=== PATIENT | male | born 1970 | race Hispanic/Latino ===

== ENCOUNTER 2017-09-24 11:51 | Observation (INO) | payer MEDICARE, MEDICAID ==
--- NOTE | 2017-09-24 12:48 | ED PDOC ---
HPI:STROKE - Time Time: 12:43 - Historian Historian: Patient - Chief Complaint Chief Complaint: Confusion - Onset Date: 09/23/17 Time: 12:00 - Timing Timing: Persistent - Location Location: Speech - Severity of pain Maximum severity:: Moderate Pain Scale:: 0 Severity Current: Moderate Pain Scale:: 0 - Exacerbated by Exacerbated by:: Nothing - Relieved by Relieved by:: Nothing - TPA Positive for Contraindication: Yes Reason tPA is not being Administered: 24 hrs since onset - Notes: Notes:: [place] unsteady yesterday at 12 PM after undergoing dental procedure. Legs bialt felt heavy. Had difficulty speaking and then slept all day until this AM. H/o brain abscess with subsequent seizure disorder, on Lamotrigine. Denies fever. Dos not have recollection of having seizure. Denies headache or fever. Normally has some degree of expressive aphasia and tremors of upper ext but worse since onset of sxs. No focal weakness NIHSS Stroke Scale - How Severe is the Stroke Level of Consciousness: 0=Alert LOC to Questions: 0=Both comments correct LOC to commands: 0=Obeys both correctly Best Gaze: 0=Normal Visual: 0=No visual loss Facial: 0=Normal Motor Arm - Left: 0=No drift Motor Arm - Right: 0=No drift Motor Leg - Left: 0=No drift Motor Leg - Right: 0=No drift Limb Ataxia: 0=Absent Sensory: 0=Normal Best Language: 1=Mild to moderate aphasia Dysarthia: 0=Normal articulation Extinction & Inattention (Neglect): 0=Normal, no object Score: 1 rTPA Inclusion/Exclusion - Refusal of Treatment Patient Refused Treatment: No - Inclusion Criteria for Altepase Patient is 18 years or Older: Yes The Clinical Diagnosis of Ischemic Stroke That is Causing a Potentially Disabling Neurological Deficit: No Time of Onset is Well Established to be Less Than 270 Minute Before Treatment Would Begin: No Risk/Benefit Discussed With Patient/Family Member Present: No Past Medical History Vital Signs: Last Vital Signs Temp 97 F L 09/24/17 11:59 Pulse 97 H 09/24/17 11:59 Resp 18 09/24/17 11:59 BP 156/100 H 09/24/17 11:59 Pulse Ox 100 09/24/17 11:59 - Medical History PMH: Anxiety, Depression, Seizures - Surgical History Other surgeries: Brain abscess - Family History Family History: States: Unknown Family Hx - Home Medications Home Medications: Ambulatory Orders Medication Instructions Recorded Clindamycin [Cleocin] 300 mg PO BID #14 cap 08/25/16 - Allergies Allergies/Adverse Reactions: Allergies Allergy/AdvReac Type Severity Reaction Status Date / Time No Known Allergies Allergy Verified 08/25/16 00:45 Review of Systems ROS Statement: Except As Marked, All Systems Reviewed And Found Negative Neurological: Positive for: Seizures Physical Exam - Reviewed Nursing Documentation Reviewed: Yes Vital Signs Reviewed: Yes - Physical Exam Appears: Positive for: Non-toxic, No Acute Distress Head Exam: Positive for: ATRAUMATIC, NORMAL INSPECTION, NORMOCEPHALIC Skin: Positive for: Normal Color, Warm, DRY Eye Exam: Positive for: EOMI, Normal appearance, PERRL ENT: Positive for: Normal ENT Inspection Neck: Positive for: Normal, Painless ROM Cardiovascular/Chest: Positive for: Regular Rate, Rhythm Respiratory: Positive for: CNT, Normal Breath Sounds Gastrointestinal/Abdominal: Positive for: Normal Exam, Bowel Sounds, Soft Back: Positive for: Normal Inspection Extremity: Positive for: Normal ROM Neurologic/Psych: Positive for: Alert, Oriented, Aphasia (expressive), Other ( Tremors upper ext R>L) - Laboratory Results Result Diagrams: 09/24/17 12:45 09/24/17 12:45 - ECG O2 Sat by Pulse Oximetry: 100 Disposition - Clinical Impression Clinical Impression: Recurrent seizures - Patient ED Disposition Is Patient to be Admitted: Yes - Disposition Disposition Time: 14:22 Condition: FAIR Forms: [facility] (Angolan) - Pt Status Changed To: Hospital Disposition Of: Observation - POA Present On Arrival: None
[2017-09-24 12:54] LABS: BASO % 0.3 % (0.0-2.0); EOS # 0.1 K/uL (0.0-0.7); EOS % 1.6 % (0.0-4.0); LYMPH % 13.8 % (20.0-40.0); MEAN CELL VOLUME 89.3 fl (80.0-94.0); MEAN CORPUSCULAR HEMOGLOBIN 29.9 pg (27.0-31.0); MEAN CORPUSCULAR HGB CONC 33.5 g/dL (33.0-37.0); MEAN PLATELET VOLUME 7.3 fl (7.2-11.7); MONO # 0.6 K/uL (0.0-0.8); MONO % 8.2 % (0.0-10.0); NEUT # 5.5 K/uL (1.8-7.0); NEUT % 76.1 % (50.0-75.0); NRBC % 0.1 % (0.0-0.0); RBC 5.34 Mil/uL (4.40-5.90); RED CELL DISTRIBUTION WIDTH 15.9 % (11.5-14.5); WHITE BLOOD COUNT 7.3 K/uL (4.8-10.8)
[2017-09-24 13:06] LABS: ALB/GLOB RATIO 1.4 (1.0-2.1); ALBUMIN 4.4 g/dL (3.5-5.0); ALT/SGPT 47 U/L (21-72); AST/SGOT 27 U/L (17-59); BLOOD UREA NITROGEN 15 mg/dl (9-20); CALCIUM 9.4 mg/dL (8.4-10.2); GFR AFRICAN-AMERICAN > 60; GFR NON-AFRICAN AMERICAN > 60; HDL CHOLESTEROL 32 MG/DL (30-70); INR 0.9 (0.9-1.2); PARTIAL THROMBOPLASTIN TIME 32.4 Seconds (25.6-37.1); PROTHROMBIN TIME 10.4 Seconds (9.8-13.1)
[2017-09-24 13:17] LABS: LDL CHOLESTEROL 114 mg/dL (0-129)
--- NOTE | 2017-09-24 14:01 | CT ---
PROCEDURE: CT HEAD WITHOUT CONTRAST. HISTORY: code stroke COMPARISON: MRI brain dated 07/08/2017. TECHNIQUE: Axial computed tomography images were obtained through the head/brain without intravenous contrast. Radiation dose: Total exam DLP = 874.5 mGy-cm. This CT exam was performed using one or more of the following dose reduction techniques: Automated exposure control, adjustment of the mA and/or kV according to patient size, and/or use of iterative reconstruction technique. FINDINGS: HEMORRHAGE: No intracranial hemorrhage. BRAIN: No mass effect or edema. Left occipital encephalomalacia. No atrophy or chronic microvascular ischemic changes. VENTRICLES: Asymmetric prominence of the right lateral ventricle, variant. No hydrocephalus. Roosevelt cisterna magna. CALVARIUM: Unremarkable. PARANASAL SINUSES: Unremarkable as visualized. No significant inflammatory changes. MASTOID AIR CELLS: Unremarkable as visualized. No inflammatory changes. OTHER FINDINGS: None. IMPRESSION: No acute intracranial pathology. Redemonstration of left occipital lobe encephalomalacia.
--- NOTE | 2017-09-24 15:50 | RAD ---
HISTORY: seizure COMPARISON: Chest radiograph dated 01/28/2013. FINDINGS: LUNGS: No active pulmonary disease. PLEURA: Mild elevation of the right hemidiaphragm. No significant pleural effusion identified, no pneumothorax apparent. CARDIOVASCULAR: Cardiomediastinal silhouette stably prominent. OSSEOUS STRUCTURES: Unchanged. VISUALIZED UPPER ABDOMEN: Epigastric and left upper quadrant region surgical clips. OTHER FINDINGS: Thoracic spinal stimulator leads. IMPRESSION: No active disease.
[2017-09-24] MEDS: AMPHETAMINE SALT COMBINATION 10 MG TAB PO SCH (18:27)
[2017-09-24] MEDS ORDERED: Calcium-Vit D 500 mg-200 Units Tab UD PO SCH (22:00)
[2017-09-25 00:46] VITALS: RESP 18
[2017-09-25 06:16] LABS: ALB/GLOB RATIO 1.3 (1.0-2.1); ALT/SGPT 42 U/L (21-72); AST/SGOT 27 U/L (17-59); BLOOD UREA NITROGEN 13 mg/dl (9-20); CALCIUM 9.1 mg/dL (8.4-10.2); GFR AFRICAN-AMERICAN > 60; GFR NON-AFRICAN AMERICAN > 60; HDL CHOLESTEROL 26 MG/DL (30-70)
[2017-09-25 06:25] LABS: LDL CHOLESTEROL 99 mg/dL (0-129)
[2017-09-25 06:28] LABS: BASO % 0.4 % (0.0-2.0); EOS # 0.2 K/uL (0.0-0.7); EOS % 2.4 % (0.0-4.0); HEMOGLOBIN 16.1 g/dL (12.0-18.0); LYMPH # 1.1 K/uL (1.0-4.3); LYMPH % 16.3 % (20.0-40.0); MEAN CELL VOLUME 88.8 fl (80.0-94.0); MEAN CORPUSCULAR HEMOGLOBIN 30.1 pg (27.0-31.0); MEAN PLATELET VOLUME 7.5 fl (7.2-11.7); MONO # 0.6 K/uL (0.0-0.8); MONO % 9.7 % (0.0-10.0); NEUT # 4.6 K/uL (1.8-7.0); NEUT % 71.2 % (50.0-75.0); NRBC % 0.2 % (0.0-0.0); RBC 5.34 Mil/uL (4.40-5.90); RED CELL DISTRIBUTION WIDTH 15.9 % (11.5-14.5); WHITE BLOOD COUNT 6.5 K/uL (4.8-10.8)
[2017-09-25 08:16] VITALS: BP 129/75; PULSE 85; TEMP 97.6; O2SAT 97
[2017-09-25] MEDS ORDERED: Enoxaparin 40 mg Syringe SC SCH (09:00)
[2017-09-25] MEDS ORDERED: Multivitamin With Minerals Tab PO SCH (09:00)
[2017-09-25] MEDS ORDERED: Omega-3-Acid Ethyl Esters 1 GM Cap PO SCH (09:00)
[2017-09-25] MEDS ORDERED: Cholecalciferol 1,000 INTLU TAB PO SCH (09:00)
[2017-09-25] MEDS ORDERED: Venlafaxine 150 mg ER Cap PO SCH (09:00)
[2017-09-25] MEDS: AMPHETAMINE SALT COMBINATION 10 MG TAB PO SCH (09:57)
--- NOTE | 2017-09-25 11:27 | CARD ---
APPROVED REPORT EKG Measurement Heart [id number] CT [id number] [id number] <Conclusion> Normal sinus rhythm Normal ECG
--- NOTE | 2017-09-25 11:37 | CP.PCM.HP ---
History of Present Illness - History of Present Illness History of Present Illness: 47 YO M was admitted yesterday after undergoing an eppiosde of a questionable seizure vs TIA. Patient was at the dentist office yesterday when he was given local anaesthesia for a dental procedure, after that the patient states he felt as if his legs felt heavy and difficulty speaking. He ended up sleeping all day untill he came to the ER. He has been having eppisodes of seizures ever since he had surgery for his brain abscess. He has been complient with his medication. Patient has been explained the importance of staying in the hospital for furthur work up however, he staes he has an appointment with Dr. Funez, and would like to go. PMH: Seizures SH: Brain abscess FH: not significant SH: Denies travel or illicit drug use Present on Admission - Present on Admission Any Indicators Present on Admission: No Past Patient History - Past Medical History & Family History Past Medical History?: Yes - Past Social History Smoking Status: Former Smoker - NEUROLOGICAL Hx Neurological Disorder: Yes Hx Meningitis: Yes Hx Seizures: Yes - HEMATOLOGICAL/ONCOLOGICAL Hx AIDS: No Hx Human Immunodeficiency Virus (HIV): No - MUSCULOSKELETAL/RHEUMATOLOGICAL Hx Falls: No - PSYCHIATRIC Hx Psychophysiologic Disorder: Yes Hx Anxiety: Yes Hx Depression: Yes Hx Substance Use: No - SURGICAL HISTORY Hx Surgeries: Yes Hx Appendectomy: Yes Hx Gastric Bypass Surgery: Yes (5 years ago) Hx Herniorrhaphy: Yes (Ventral and right groin hernia repair) Other/Comment: Brain surgery on brain abscess. Back Stimulation System Implant - ANESTHESIA Hx Anesthesia: Yes Hx Anesthesia Reactions: No Meds Allergies/Adverse Reactions: Allergies Allergy/AdvReac Type Severity Reaction Status Date / Time No Known Allergies Allergy Verified 08/25/16 00:45 Physical Exam - Constitutional Appears: No Acute Distress - Head Exam Head Exam: NORMAL INSPECTION - Eye Exam Eye Exam: Normal appearance - Respiratory Exam Respiratory Exam: Clear to Auscultation Bilateral, NORMAL BREATHING PATTERN. absent: Rhonchi, Wheezes - Cardiovascular Exam Cardiovascular Exam: REGULAR RHYTHM, +S1, +S2 - GI/Abdominal Exam GI & Abdominal Exam: Normal Bowel Sounds, Soft. absent: Tenderness - Extremities Exam Extremities exam: Positive for: normal inspection. Negative for: calf tenderness - Neurological Exam Neurological exam: Alert, CN II-XII Intact, Normal Gait, Oriented x3, Reflexes Normal - Psychiatric Exam Psychiatric exam: Normal Affect, Normal Mood - Skin Skin Exam: Normal Color, Warm Results - Vital Signs Recent Vital Signs: Last Vital Signs Temp 97.6 F 09/25/17 08:00 Pulse 85 09/25/17 08:00 Resp 18 09/25/17 08:00 BP 129/75 09/25/17 08:00 Pulse Ox 97 09/25/17 08:00 - Labs Result Diagrams: 09/25/17 04:32 09/25/17 04:32 Labs: Laboratory Results - last 24 hr 09/24/17 09/24/17 09/24/17 12:45 12:45 12:45 WBC 7.3 RBC 5.34 Hgb 16.0 D Hct 47.7 MCV 89.3 MCH 29.9 MCHC 33.5 RDW 15.9 H Plt Count 189 MPV 7.3 Neut % (Auto) 76.1 H Lymph % (Auto) 13.8 L [place] % (Auto) 8.2 Eos % (Auto) 1.6 Baso % (Auto) 0.3 Neut # (Auto) 5.5 Lymph # (Auto) 1.0 Meade # (Auto) 0.6 Eos # (Auto) 0.1 Baso # (Auto) 0.0 PT INR APTT Sodium 143 Potassium 4.3 Chloride 104 Carbon Dioxide 26 Anion Gap 17 BUN 15 Creatinine 0.8 Est GFR ( Amer) > 60 Est GFR (Non-Af Amer) > 60 Random Glucose 98 Hemoglobin A1c 5.5 Calcium 9.4 Total Bilirubin 0.7 AST 27 ALT 47 Alkaline Phosphatase 40 Troponin I < 0.0120 Total Protein 7.4 Albumin 4.4 Globulin 3.0 Albumin/Globulin Ratio 1.4 Triglycerides 70 Cholesterol 156 LDL Cholesterol Direct 114 HDL Cholesterol 32 Vitamin B12 Blood Type Blood Type Confirm Antibody Screen BBK History Checked 09/24/17 09/24/17 09/24/17 12:45 12:45 14:40 WBC RBC Hgb Hct MCV MCH MCHC RDW Plt Count MPV Neut % (Auto) Lymph % (Auto) Meade % (Auto) Eos % (Auto) Baso % (Auto) Neut # (Auto) Lymph # (Auto) Meade # (Auto) Eos # (Auto) Baso # (Auto) PT 10.4 INR 0.9 APTT 32.4 Sodium Potassium Chloride Carbon Dioxide Anion Gap BUN Creatinine Est GFR ( Amer) Est GFR (Non-Af Amer) Random Glucose Hemoglobin A1c Calcium Total Bilirubin AST ALT Alkaline Phosphatase Troponin I Total Protein Albumin Globulin Albumin/Globulin Ratio Triglycerides Cholesterol LDL Cholesterol Direct HDL Cholesterol Vitamin B12 Blood Type B POSITIVE Blood Type Confirm B POSITIVE Antibody Screen Negative BBK History Checked No verified bt 09/24/17 09/25/17 09/25/17 16:38 04:32 04:32 WBC 6.5 RBC 5.34 Hgb 16.1 Hct 47.5 MCV 88.8 MCH 30.1 MCHC 34.0 RDW 15.9 H Plt Count 184 MPV 7.5 Neut % (Auto) 71.2 Lymph % (Auto) 16.3 L [place] % (Auto) 9.7 Eos % (Auto) 2.4 Baso % (Auto) 0.4 Neut # (Auto) 4.6 Lymph # (Auto) 1.1 Meade # (Auto) 0.6 Eos # (Auto) 0.2 Baso # (Auto) 0.0 PT INR APTT Sodium 144 Potassium 3.8 Chloride 103 Carbon Dioxide 34 H Anion Gap 11 BUN 13 Creatinine 0.9 Est GFR ( Amer) > 60 Est GFR (Non-Af Amer) > 60 Random Glucose 74 L Hemoglobin A1c Calcium 9.1 Total Bilirubin 0.9 AST 27 ALT 42 Alkaline Phosphatase 37 L Troponin I Total Protein 6.9 Albumin 4.0 Globulin 2.9 Albumin/Globulin Ratio 1.3 Triglycerides 74 Cholesterol 142 LDL Cholesterol Direct 99 HDL Cholesterol 26 L Vitamin B12 910 Blood Type Blood Type Confirm Antibody Screen BBK History Checked Assessment & Plan - Assessment and Plan (Free Text) Assessment: 1) Seizure Vs TIA - Was transient and resolved. - Head CT was negative - Neuro consulted - continue home meds - Patient would like to sign out AMA to see his neurologist outpatient. Understands risks.
[2017-09-25 17:26] LABS: FOLATE > 20.0 ng/mL
[2017-09-25 20:53] LABS: THYROGLOBULIN 7.1 ng/mL (2.8-40.9)
--- NOTE | 2017-09-28 09:02 | HP ---
CHIEF COMPLAINT: Abdominal pain. HISTORY OF PRESENT ILLNESS: This is a 54-year-old male known case of end-stage cirrhosis of the liver from past alcohol abuse, who had multiple admissions to this hospital and also had multiple paracenteses done, who was having abdominal pain. The patient was brought to the emergency room and was admitted for further management. REVIEW OF SYSTEMS: Positive for abdominal pain. Review of systems otherwise is negative for headache, dizziness, syncope, loss of consciousness, chest pain, shortness of breath, nausea, vomiting, diarrhea, constipation, any new joint or extremity pain. Review of systems of all other organ system is unremarkable. PAST MEDICAL HISTORY: Significant for cirrhosis of liver. PAST SURGICAL HISTORY: Remarkable for multiple paracentesis. PERSONAL HISTORY: The patient is currently nonsmoker, nondrinker. No substance abuse, but has history of extensive alcohol abuse in the past. FAMILY HISTORY: Noncontributory. PHYSICAL EXAMINATION: GENERAL: Chronically sick-looking, 54-year-old male in no acute distress. VITAL SIGNS: Temperature afebrile, pulse 88, respirations 18, blood pressure 100/70. HEENT: Pupils are reacting to light. Normocephalic and atraumatic skull. NECK: No JVD. No thyromegaly. No lymphadenopathy. No nystagmus. HEART: S1 and S2, normal and regular. No significant murmur, gallop or rub is heard. LUNGS: Shows good bilateral air exchange. No rales or rhonchi. ABDOMEN: Actually soft, minimal tenderness, minimal ascites. No sign of acute abdomen. No guarding. No rigidity. No rebound. Bowel sounds are plus and normal. EXTREMITIES: No edema. No calf swelling. No tenderness. No acute ischemia. CENTRAL NERVOUS SYSTEM: Essentially unchanged from the patient's initial exam and there is no sign of any acute gross focal, motor, or sensory neurological deficit. DIAGNOSTIC DATA: Available diagnostic data reviewed. Telemetry monitoring does not reveal significant arrhythmias. INR remains elevated so are the liver enzymes. Admitting patient's CAT scan also is consistent with possible cholecystitis, I am recommending HIDA scan. ADMITTING IMPRESSION: Abdominal pain, questionable acute cholecystitis, ascites, cirrhosis of liver, alcohol abuse in the past. PLAN: As ordered. Case and plan discussed with patient. Quan Lozano MD [facility] # [id number]
== END 2017-09-25 11:16 | disposition left against medical advice (07) ==
LOC: H.ER 11:51 → H.ERHOLD 14:19 → H.TEL 21:34
PROVIDERS: ADMIT Internal Medicine; ATTEND Internal Medicine
DX: G40.909 Epilepsy, unspecified, not intractable, without status epilepticus (principal); R47.01 Aphasia; Z79.899 Other long term (current) drug therapy; Z86.61 Personal history of infections of the central nervous system; Z87.891 Personal history of nicotine dependence; Z90.49 Acquired absence of other specified parts of digestive tract; Z98.84 Bariatric surgery status; F32.9 Major depressive disorder, single episode, unspecified; F41.9 Anxiety disorder, unspecified; F45.9 Somatoform disorder, unspecified; R25.1 Tremor, unspecified
CPT/HCPCS: 36415; 70450; 71045; 80053; 80061; 82607; 82746; 83036; 84432; 84484; 85025; 85610; 85730; 86800; 86850; 86900; 93005; 99285; G0378

== ENCOUNTER 2018-08-24 17:40 | Inpatient (IN) | payer MEDICARE, MEDICAID ==
[2018-08-24] MEDS ORDERED: Sodium Chloride 0.9% 1,000 ML IV STA (18:47)
--- NOTE | 2018-08-24 19:20 | ED PDOC ---
HPI: Abdomen Time Seen by Provider: 08/24/18 18:22 Chief Complaint (Nursing): Abdominal Pain History Per: Patient Additional Complaint(s): Pt states for the past 2 weeks he's had epigastric pain associated with constipation. Attempted to use enema without relief but has been using antacids with good relief of abdominal pain. Symptoms improved 2 days ago and had normal BM's but today he had 2 BM that were very dark and he also noticed bright red blood when he wiped. Also reports feeling weak which began after looking at his abnormal stool. Denies chest pain, SOB, N/V, hematemesis, previous GI bleeds, fever, diarrhea, previous blood transfusions, rectal pain. Past Medical History Reviewed: Historical Data, Nursing Documentation, Vital Signs Vital Signs: Last Vital Signs Temp 98.8 F 08/24/18 17:57 Pulse 136 H 08/24/18 17:57 Resp 18 08/24/18 17:57 BP 117/79 08/24/18 17:57 Pulse Ox 98 08/24/18 17:57 - Medical History PMH: Anxiety, Depression, Seizures Denies: HIV - Surgical History Surgical History: Appendectomy Other surgeries: gastric bypass 2014 - Family History Family History: States: No Known Family Hx - Home Medications Home Medications: Ambulatory Orders Medication Instructions Recorded Calcium Carbonate/Vitamin D3 2 tab PO HS 09/24/17 [Calcium 1,000 + D3 Caplet] Cholecalciferol [Vitamin D 1000 IU] 2,000 unit PO DAILY 09/24/17 Cyanocobalamin [Vitamin B12 1000 3,000 mcg PO DAILY 09/24/17 mcg Tab] Dextroamphetamine/Amphetamine 10 mg PO TID 09/24/17 [Adderall 10 mg Tablet] Ferrous Sulfate 325 mg PO DAILY 09/24/17 Multivitamin [Multi-Vitamin Daily] 1 tab PO DAILY 09/24/17 [place]-3S/Dha/Epa/Fish Oil [Fish 1,200 mg PO DAILY 09/24/17 Oil 1,200 mg Softgel] RX: Aspirin [Ecotrin] 81 mg PO DAILY 09/24/17 RX: buPROPion XL [Wellbutrin XL] 300 mg PO DAILY 09/24/17 Testosterone [Androgel] 2 actuation TD DAILY 09/24/17 clonazePAM [Klonopin] 0.5 mg PO Q12H 02/01/18 lamoTRIgine [Lamictal] 100 mg PO Q12H 09/24/17 - Allergies Allergies/Adverse Reactions: Allergies Allergy/AdvReac Type Severity Reaction Status Date / Time No Known Allergies Allergy Verified 08/25/16 00:45 Review of Systems ROS Statement: Except As Marked, All Systems Reviewed And Found Negative Gastrointestinal: Positive for: Abdominal Pain Neurological: Positive for: Weakness Physical Exam - Reviewed Nursing Documentation Reviewed: Yes Vital Signs Reviewed: Yes - Physical Exam Appears: Positive for: Well, Non-toxic, No Acute Distress Head Exam: Positive for: NORMAL INSPECTION (old scar on occipital scalp) Skin: Positive for: Normal Color, Warm. Negative for: Rash Eye Exam: Positive for: EOMI, Normal appearance, PERRL ENT: Positive for: Normal ENT Inspection Neck: Positive for: Normal, Painless ROM Cardiovascular/Chest: Positive for: Regular Rate, Rhythm Respiratory: Positive for: CNT, Normal Breath Sounds Gastrointestinal/Abdominal: Positive for: Normal Exam, Bowel Sounds, Soft. Negative for: Tenderness, Distended Back: Positive for: Normal Inspection Rectal: Positive for: Rectal Tone Is: (intact), Black Stool. Negative for: Blood Streaked Stool, Hemorrhoids, Tenderness Extremity: Positive for: Normal ROM Neurologic/Psych: Positive for: Alert, Oriented - Laboratory Results Result Diagrams: 08/24/18 19:00 08/24/18 19:00 - ECG O2 Sat by Pulse Oximetry: 98 - Progress ED Course And Treament: Labs, EKG, protonix 80mg IV and drip, IV NS Bolus, obstructive series ordered. Pt. placed on surveillance monitor. Case d/w Dr. Cano who agrees with plan. Disposition - Clinical Impression Clinical Impression: Melena - Patient ED Disposition Is Patient to be Admitted: Transfer of Care (Signed out to Lady GARCIAS pending EKG, labs, and final disposition) - Disposition Disposition Time: 20:00 Condition: STABLE Forms: [email or web address] (Arabic)
[2018-08-24 19:25] LABS: BASO % 0.5 % (0.0-2.0); EOS # 0.1 K/uL (0.0-0.7); EOS % 1.1 % (0.0-4.0); HEMOGLOBIN 10.3 g/dL (12.0-18.0); LYMPH # 0.8 K/uL (1.0-4.3); LYMPH % 13.9 % (20.0-40.0); MEAN CELL VOLUME 97.9 fl (80.0-94.0); MEAN CORPUSCULAR HEMOGLOBIN 33.5 pg (27.0-31.0); MEAN CORPUSCULAR HGB CONC 34.2 g/dL (33.0-37.0); MEAN PLATELET VOLUME 7.2 fl (7.2-11.7); MONO # 0.7 K/uL (0.0-0.8); MONO % 11.2 % (0.0-10.0); NEUT # 4.3 K/uL (1.8-7.0); NEUT % 73.3 % (50.0-75.0); RBC 3.08 Mil/uL (4.40-5.90); RED CELL DISTRIBUTION WIDTH 13.6 % (11.5-14.5); WHITE BLOOD COUNT 5.9 K/uL (4.8-10.8)
[2018-08-24 19:32] LABS: PARTIAL THROMBOPLASTIN TIME 29.4 Seconds (25.6-37.1); PROTHROMBIN TIME 11.5 Seconds (9.8-13.1)
[2018-08-24 19:42] LABS: ALB/GLOB RATIO 1.4 (1.0-2.1); ALBUMIN 3.3 g/dL (3.5-5.0); ALT/SGPT 34 U/L (21-72); AST/SGOT 26 U/L (17-59); BLOOD UREA NITROGEN 39 mg/dl (9-20); CALCIUM 8.6 mg/dL (8.4-10.2); GFR NON-AFRICAN AMERICAN > 60; LIPASE 213 U/L (23-300)
[2018-08-24] MEDS: Pantoprazole 40 MG in Sodium Chloride 0.9% 100 ML IVPB SCH (19:50)
[2018-08-24] MEDS ORDERED: Sodium Chloride 0.9% 50 ML IV ONE (20:14)
[2018-08-24] MEDS ORDERED: Iohexol 300 100 ML IJ ONE (20:14)
--- NOTE | 2018-08-24 20:30 | ED PDOC ---
- Laboratory Results Result Diagrams: 08/25/18 06:19 08/24/18 19:00 - ECG O2 Sat by Pulse Oximetry: 98 Medical Decision Making Medical Decision Making: Pt endorsed to me by NATIVIDAD Kelley pending hemoccult and CT scan results. COMMENTS: The liver is of uniform attenuation without mass or defect. There is no intra or extrahepatic biliary ductal dilatation. The spleen is normal. The gallbladder is within normal limits. The pancreas is of normal contour and attenuation characteristics. There is no evidence of adrenal mass. The patient is status post ventral abdominal hernia repair. Post surgical changes are present associated with the stomach. Both kidneys demonstrate prompt and equal nephrograms. The kidneys are normal in size, shape and configuration. No renal or ureteral calculi are identified. There is no hydroureter or hydronephrosis. There is a 2.8 cm heterogeneously enhancing mass present in the mid pole of the left kidney laterally which may represent renal cell carcinoma until proven otherwise. Follow-up with abdominal MRI pre and post contrast is recommended. No evidence for appendicitis. There is no bowel wall thickening. There are mildly dilated loops of jejunum present containing fecal like material consisten t with fecalization. This suggests partial small bowel obstruction versus ileus. There is diffuse diverticulosis involving descending and sigmoid colon. No evidence of acute diverticulitis. There is no evidence of abdominal ascites or lymphadenopathy. There is no evidence of intrinsic or extrinsic bladder mass. There is no pelvic ascites or lymphadenopathy. Penile implant is in place. Images of the lung bases show no evidence of pleural or parenchymal mass. There are no pleural effusions. The bony structures are free of lytic or blastic lesions. Intraspinal electrodes are present with a device noted in the left flank area. There is a hardware present within the bony pelvis. IMPRESSION: 1. The patient is status post ventral abdominal hernia repair. 2. Post surgical changes are present associated with the stomach. 3. 2.8 cm heterogeneously enhancing mass present in the mid pole of the left kidney laterally which may represent renal cell carcinoma until proven otherwise. Follow-up with abdominal MRI pre and post contrast is recommended. 4. Mildly dilated loops of jejunum containing fecal like material consistent with fecalization. This suggests partial small bowel obstruction versus ileus. Consider follow up with CT performed with oral contrast. 5. Diffuse diverticulosis involving descending and sigmoid colon. No evidence of acute diverticulitis. Pt admitted under Dr. Briggs for SBO vs ileus. Electronically signed on Aug 24, 2018 9:59:57 PM EST by: Hermilo Taylor M.D., SIMONE Certified By [facility] Fellowship Trained MRI and CT Specialist Disposition Discussed With : Guanaco Briggs Doctor Will See Patient In The: Hospital - Clinical Impression Clinical Impression: Small bowel obstruction, partial - POA Present On Arrival: None - Disposition Disposition: Admitted as In-Patient Disposition Time: 22:50 Condition: FAIR
[2018-08-24 23:12] LABS: URINE BILIRUBIN NEGATIVE (NEGATIVE); URINE BLOOD NEGATIVE (NEGATIVE); URINE CLARITY CLEAR (Clear); URINE COLOR YELLOW (YELLOW); URINE GLUCOSE (UA) NEG (NEGATIVE); URINE LEUKOCYTE ESTERASE NEG Leu/uL (Negative); URINE PROTEIN NEGATIVE (NEGATIVE); URINE UROBILINOGEN 0.2-1.0 mg/dL (0.2-1.0)
--- NOTE | 2018-08-25 00:35 | CP.PCM.HP ---
<Tevin Kimble - Last Filed: 08/25/18 03:37> History of Present Illness - History of Present Illness History of Present Illness: 48 yo M with pmhx of meningitis, seizures presented to the ED with abdominal pain. Pt reported having abdominal pain for approximately 1 week. Pain is generalized, associated with dark stools, 6 days of constipation. Pain worse with standing. Alleviated with rest. Earlier in the day, he experienced tarry stools which progressed to hematochezia. Lately, he has felt weak, nauseous, and dizzy. Denies history of GI bleeds. PMD: Dr. Felix, [place] Neurology: Dr. Swift Surgeries: Gastric bypass, brain (2/2 meningitis), ventral/femoral hernia, appendectomy, penile implant, gluteal implant Famhx: DM, HTN, Cancer (unknown type) Soc: Denies smoking, alcohol on rare occation, Denies illicit drugs NKDA Present on Admission - Present on Admission Any Indicators Present on Admission: No History of Uncontrolled Diabetes: No Urinary Catheter: No Review of Systems - Constitutional Constitutional: As Per HPI, Lethargy, Weakness - Cardiovascular Cardiovascular: absent: Chest Pain - Respiratory Respiratory: absent: Cough, Dyspnea - Gastrointestinal Gastrointestinal: Abdominal Pain, Change in Bowel Habits, Change in Stool Character, Constipation, Hematochezia, Melena, Nausea Past Patient History - Past Medical History & Family History Past Medical History?: Yes - Past Social History Smoking Status: Former Smoker Alcohol: Occasional Drugs: Denies Home Situation {Lives}: With Family - NEUROLOGICAL Hx Seizures: Yes - HEMATOLOGICAL/ONCOLOGICAL Hx Human Immunodeficiency Virus (HIV): No - MUSCULOSKELETAL/RHEUMATOLOGICAL Hx Falls: No - PSYCHIATRIC Hx Anxiety: Yes Hx Depression: Yes - SURGICAL HISTORY Hx Appendectomy: Yes - ANESTHESIA Hx Anesthesia: Yes Hx Anesthesia Reactions: No Meds Allergies/Adverse Reactions: Allergies Allergy/AdvReac Type Severity Reaction Status Date / Time No Known Allergies Allergy Verified 08/25/16 00:45 Physical Exam - Constitutional Appears: No Acute Distress - Eye Exam Eye Exam: EOMI - ENT Exam ENT Exam: Mucous Membranes Moist - Respiratory Exam Respiratory Exam: Clear to Auscultation Bilateral, NORMAL BREATHING PATTERN. absent: Wheezes - Cardiovascular Exam Cardiovascular Exam: REGULAR RHYTHM, +S1, +S2 - GI/Abdominal Exam GI & Abdominal Exam: Hypoactive Bowel Sounds, Soft. absent: Tenderness - Neurological Exam Neurological exam: Alert, CN II-XII Intact, Oriented x3 - Psychiatric Exam Psychiatric exam: Normal Affect, Normal Mood Results - Vital Signs Recent Vital Signs: Last Vital Signs Temp 98.8 F 08/24/18 17:57 Pulse 103 H 08/24/18 23:16 Resp 20 08/24/18 23:16 BP 115/68 08/24/18 23:16 Pulse Ox 100 08/24/18 23:16 - Labs Result Diagrams: 08/24/18 19:00 08/24/18 19:00 Labs: Laboratory Results - last 24 hr 08/24/18 08/24/18 08/24/18 18:55 19:00 19:00 WBC 5.9 RBC 3.08 L Hgb 10.3 L D Hct 30.1 L MCV 97.9 H D MCH 33.5 H MCHC 34.2 RDW 13.6 Plt Count 233 MPV 7.2 Neut % (Auto) 73.3 Lymph % (Auto) 13.9 L [place] % (Auto) 11.2 H Eos % (Auto) 1.1 Baso % (Auto) 0.5 Neut # (Auto) 4.3 Lymph # (Auto) 0.8 L [place] # (Auto) 0.7 Eos # (Auto) 0.1 Baso # (Auto) 0.0 PT INR APTT Sodium 139 Potassium 4.5 Chloride 106 Carbon Dioxide 26 Anion Gap 12 BUN 39 H Creatinine 0.8 Est GFR ( Amer) > 60 Est GFR (Non-Af Amer) > 60 Random Glucose 97 Calcium 8.6 Total Bilirubin 0.5 AST 26 ALT 34 Alkaline Phosphatase 51 Total Protein 5.8 L Albumin 3.3 L Globulin 2.5 Albumin/Globulin Ratio 1.4 Lipase 213 Urine Color Urine Clarity Urine pH Ur Specific [place] Urine Protein Urine Glucose (UA) Urine Ketones Urine Blood Urine Nitrate Urine Bilirubin Urine Urobilinogen Ur Leukocyte Esterase Urine RBC (Auto) Urine Microscopic WBC Stool Occult Blood Negative Blood Type Antibody Screen BBK History Checked 08/24/18 08/24/18 08/24/18 19:00 19:00 22:15 WBC RBC Hgb Hct MCV MCH MCHC RDW Plt Count MPV Neut % (Auto) Lymph % (Auto) [place] % (Auto) Eos % (Auto) Baso % (Auto) Neut # (Auto) Lymph # (Auto) [place] # (Auto) Eos # (Auto) Baso # (Auto) PT 11.5 INR 1.0 APTT 29.4 Sodium Potassium Chloride Carbon Dioxide Anion Gap BUN Creatinine Est GFR ( Amer) Est GFR (Non-Af Amer) Random Glucose Calcium Total Bilirubin AST ALT Alkaline Phosphatase Total Protein Albumin Globulin Albumin/Globulin Ratio Lipase Urine Color Yellow Urine Clarity Clear Urine pH 5.0 Ur Specific [place] 1.040 H Urine Protein Negative Urine Glucose (UA) Neg Urine Ketones Negative Urine Blood Negative Urine Nitrate Negative Urine Bilirubin Negative Urine Urobilinogen 0.2-1.0 Ur Leukocyte Esterase Neg Urine RBC (Auto) < 1 Urine Microscopic WBC < 1 Stool Occult Blood Blood Type B POSITIVE Antibody Screen Negative BBK History Checked Patient has bt Assessment & Plan - Assessment and Plan (Free Text) Assessment: 48 yo M with pmhx of meningitis, seizures admitted for partial SBO Plan: CT abdomen and pelvis: 1. The patient is status post ventral abdominal hernia repair. 2. Post surgical changes are present associated with the stomach. 3. 2.8 cm heterogeneously enhancing mass present in the mid pole of the left kidney laterally which may represent renal cell carcinoma until proven otherwise. Follow-up with abdominal MRI pre and post contrast is recommended. 4. Mildly dilated loops of jejunum containing fecal like material consistent with fecalization. This suggests partial small bowel obstruction versus ileus. Consider follow up with CT performed with oral contrast. 5. Diffuse diverticulosis involving descending and sigmoid colon. No evidence of acute diverticulitis. Partial SBO Gen Surg: consulted: Dr. Olea; Recs appreciated GI consulted: Dr. Blackburn; Recs appreciated NPO protonix IVF: 1 mx asa held Consider enema and repeat CT for obstructive series Seizure c/w Lamotrigine f/u lamotrigine levels seizure precautions DVT/GI prophylaxis: -SCD -IV protonix Case and Plan dw Dr. Chester Kimble MD PGY-2 <Guanaco Briggs - Last Filed: 08/25/18 10:26> Results - Vital Signs Recent Vital Signs: Last Vital Signs Temp 97.7 F 08/25/18 08:20 Pulse 80 08/25/18 08:20 Resp 20 08/25/18 08:20 BP 103/65 08/25/18 08:20 Pulse Ox 98 08/25/18 08:53 - Labs Result Diagrams: 08/25/18 06:19 08/24/18 19:00 Labs: Laboratory Results - last 24 hr 08/24/18 08/24/18 08/24/18 18:55 19:00 19:00 WBC 5.9 RBC 3.08 L Hgb 10.3 L D Hct 30.1 L MCV 97.9 H D MCH 33.5 H MCHC 34.2 RDW 13.6 Plt Count 233 MPV 7.2 Neut % (Auto) 73.3 Lymph % (Auto) 13.9 L [place] % (Auto) 11.2 H Eos % (Auto) 1.1 Baso % (Auto) 0.5 Neut # (Auto) 4.3 Lymph # (Auto) 0.8 L [place] # (Auto) 0.7 Eos # (Auto) 0.1 Baso # (Auto) 0.0 PT INR APTT Sodium 139 Potassium 4.5 Chloride 106 Carbon Dioxide 26 Anion Gap 12 BUN 39 H Creatinine 0.8 Est GFR ( Amer) > 60 Est GFR (Non-Af Amer) > 60 Random Glucose 97 Lactic Acid Calcium 8.6 Total Bilirubin 0.5 AST 26 ALT 34 Alkaline Phosphatase 51 Total Protein 5.8 L Albumin 3.3 L Globulin 2.5 Albumin/Globulin Ratio 1.4 Lipase 213 Urine Color Urine Clarity Urine pH Ur Specific [place] Urine Protein Urine Glucose (UA) Urine Ketones Urine Blood Urine Nitrate Urine Bilirubin Urine Urobilinogen Ur Leukocyte Esterase Urine RBC (Auto) Urine Microscopic WBC Stool Occult Blood Negative Blood Type Antibody Screen Crossmatch BBK History Checked 08/24/18 08/24/18 08/24/18 19:00 19:00 22:15 WBC RBC Hgb Hct MCV MCH MCHC RDW Plt Count MPV Neut % (Auto) Lymph % (Auto) [place] % (Auto) Eos % (Auto) Baso % (Auto) Neut # (Auto) Lymph # (Auto) [place] # (Auto) Eos # (Auto) Baso # (Auto) PT 11.5 INR 1.0 APTT 29.4 Sodium Potassium Chloride Carbon Dioxide Anion Gap BUN Creatinine Est GFR ( Amer) Est GFR (Non-Af Amer) Random Glucose Lactic Acid Calcium Total Bilirubin AST ALT Alkaline Phosphatase Total Protein Albumin Globulin Albumin/Globulin Ratio Lipase Urine Color Yellow Urine Clarity Clear Urine pH 5.0 Ur Specific [place] 1.040 H Urine Protein Negative Urine Glucose (UA) Neg Urine Ketones Negative Urine Blood Negative Urine Nitrate Negative Urine Bilirubin Negative Urine Urobilinogen 0.2-1.0 Ur Leukocyte Esterase Neg Urine RBC (Auto) < 1 Urine Microscopic WBC < 1 Stool Occult Blood Blood Type B POSITIVE Antibody Screen Negative Crossmatch See Detail BBK History Checked Patient has bt 08/25/18 08/25/18 06:19 08:18 WBC 7.5 RBC 2.34 L Hgb 7.8 L D Hct 22.5 L MCV 96.4 H MCH 33.3 H MCHC 34.6 RDW 13.7 Plt Count 193 MPV Neut % (Auto) Lymph % (Auto) [place] % (Auto) Eos % (Auto) Baso % (Auto) Neut # (Auto) Lymph # (Auto) [place] # (Auto) Eos # (Auto) Baso # (Auto) PT INR APTT Sodium Potassium Chloride Carbon Dioxide Anion Gap BUN Creatinine Est GFR ( Amer) Est GFR (Non-Af Amer) Random Glucose Lactic Acid 0.7 Calcium Total Bilirubin AST ALT Alkaline Phosphatase Total Protein Albumin Globulin Albumin/Globulin Ratio Lipase Urine Color Urine Clarity Urine pH Ur Specific [place] Urine Protein Urine Glucose (UA) Urine Ketones Urine Blood Urine Nitrate Urine Bilirubin Urine Urobilinogen Ur Leukocyte Esterase Urine RBC (Auto) Urine Microscopic WBC Stool Occult Blood Blood Type Antibody Screen Crossmatch BBK History Checked Attending/Attestation - Attestation I have personally seen and examined this patient.: Yes I have fully participated in the care of the patient.: Yes I have reviewed all pertinent clinical information: Yes Notes (Text): 08/25/18 10:14 I saw, examined and discussed this patient with Dr Kimble. I agree with the assessment and plan outlined above. This is a 48 years old male with hx of gastric bipass, who comes with one week of constipation, with Melena and abdominal pain. The CT of the Abdomen and pelvis shows A partial Small Bowel Obstruction and a left renal mass. Gastroenterology and surgery are consulted for the GI bleed. Urology is consulted for the Left Renal mass; Thpe and cross Pack Red Blood C ells and transfuse if Hemoglobin falls below 7g/dl. treat Seizure. Guanaco Briggs MD
[2018-08-25] MEDS: Pantoprazole 40 MG in Sodium Chloride 0.9% 100 ML IVPB SCH ×4 (02:41→18:49)
[2018-08-25] MEDS: Sodium Chloride 0.9% 1,000 ML IV SCH ×2 (02:47→09:31)
[2018-08-25] MEDS ORDERED: Morphine 4 MG/ML VIAL IVP PRN ×2 (04:20→04:30)
[2018-08-25 06:28] LABS: HEMOGLOBIN 7.8 g/dL (12.0-18.0); MEAN CELL VOLUME 96.4 fl (80.0-94.0); MEAN CORPUSCULAR HEMOGLOBIN 33.3 pg (27.0-31.0); MEAN CORPUSCULAR HGB CONC 34.6 g/dL (33.0-37.0); RBC 2.34 Mil/uL (4.40-5.90); RED CELL DISTRIBUTION WIDTH 13.7 % (11.5-14.5); WHITE BLOOD COUNT 7.5 K/uL (4.8-10.8)
--- NOTE | 2018-08-25 07:00 | CP.PCM.CON ---
History of Present Illness - History of Present Illness History of Present Illness: SURGERY CONSULT NOTE FOR DR. PATRICIA Reason for consult: CT findings of partial obstruction 48M presents to ED with abdominal pain. Patient states pain has been ongoing for 1 week. He states it is diffuse and gnawing in nature. Patient comes and goes. It was associated with nausea, but no vomiting. He states he had an episode of c onstipation for 5 days but had a big bM two days and has been going since. He admits the most recent BMs have had blood in the stool including the bowel movements he had in hospital. Patient states currently that pain is resolved. PMH: Meningitis, seizure disorder PSH: Ventral hernia repair, gastric bypass 5 years ago, appendectomy, brain abscess drainage, penile implant, spinal stimulator Social: denies tobacco and illicit drug abuse, admits to social alcohol use Allergies: NKDA Past Patient History - Past Medical History & Family History Past Medical History?: Yes - Past Social History Smoking Status: Former Smoker - CARDIAC Hx Cardiac Disorders: No - PULMONARY Hx Respiratory Disorders: No - NEUROLOGICAL Hx Neurological Disorder: Yes Hx Seizures: Yes - HEENT Hx HEENT Problems: No - RENAL Hx Chronic Kidney Disease: No - ENDOCRINE/METABOLIC Hx Endocrine Disorders: No - HEMATOLOGICAL/ONCOLOGICAL Hx Blood Disorders: No Hx Human Immunodeficiency Virus (HIV): No - INTEGUMENTARY Hx Dermatological Problems: No - MUSCULOSKELETAL/RHEUMATOLOGICAL Hx Musculoskeletal Disorders: No Hx Falls: No - GASTROINTESTINAL Hx Gastrointestinal Disorders: Yes - GENITOURINARY/GYNECOLOGICAL Hx Genitourinary Disorders: No - PSYCHIATRIC Hx Psychophysiologic Disorder: Yes Hx Anxiety: Yes Hx Depression: Yes Hx Substance Use: No - SURGICAL HISTORY Hx Surgeries: Yes Hx Appendectomy: Yes Hx Gastric Bypass Surgery: Yes Other/Comment: femoral hernia,penile implant, gluteal implant - ANESTHESIA Hx Anesthesia: Yes Hx Anesthesia Reactions: No Meds Allergies/Adverse Reactions: Allergies Allergy/AdvReac Type Severity Reaction Status Date / Time No Known Allergies Allergy Verified 08/25/16 00:45 - Medications Medications: Current Medications Amphetamine/Dextroamphetamine (Adderall) 10 mg PO TID BRITTANY Clonazepam (Klonopin) 0.5 mg PO Q12H [facility] Last Admin: 08/25/18 04:00 Dose: 0.5 mg Cyanocobalamin (Vitamin B12 1000 Mcg Tab) 2,000 mcg PO DAILY BRITTANY Pantoprazole Sodium 40 mg/ (Sodium Chloride) 100 mls @ 20 mls/hr IVPB Q5H [facility] Last Admin: 08/25/18 05:54 Dose: 20 mls/hr Sodium Chloride (Sodium Chloride 0.9%) 1,000 mls @ 125 mls/hr IV .Q8H [facility] Stop: 08/26/18 00:58 Last Admin: 08/25/18 02:47 Dose: 125 mls/hr Lamotrigine (Lamictal) 100 mg PO Q12H [facility] Last Admin: 08/25/18 04:00 Dose: 100 mg Morphine Sulfate (Morphine) 4 mg IVP Q6 PRN PRN Reason: Pain, severe (8-10) Morphine Sulfate (Morphine) 2 mg IVP Q6 PRN PRN Reason: Pain, moderate (4-7) Last Admin: 08/25/18 04:34 Dose: 2 mg Physical Exam - Constitutional Appears: Non-toxic, No Acute Distress - Head Exam Additional comments: Healed surgical scars - ENT Exam ENT Exam: Mucous Membranes Moist - Respiratory Exam Respiratory Exam: Clear to Auscultation Bilateral, NORMAL BREATHING PATTERN - Cardiovascular Exam Cardiovascular Exam: REGULAR RHYTHM, +S1, +S2 - GI/Abdominal Exam GI & Abdominal Exam: Soft, Tenderness (mild right abdominal tenderness). absent: Distended, Firm, Guarding, Rebound, Rigid - Extremities Exam Extremities exam: Negative for: pedal edema, tenderness - Neurological Exam Neurological exam: Alert, Oriented x3 - Psychiatric Exam Psychiatric exam: Normal Mood - Skin Skin Exam: Dry, Intact, Normal Color, Warm Results - Vital Signs Recent Vital Signs: Last Vital Signs Temp 98.4 F 08/25/18 03:56 Pulse 95 H 08/25/18 03:56 Resp 20 08/25/18 03:56 BP 112/72 08/25/18 03:56 Pulse Ox 97 08/25/18 03:56 - Labs Result Diagrams: 08/25/18 06:19 08/24/18 19:00 Labs: Laboratory Results - last 24 hr 08/24/18 08/24/18 08/24/18 18:55 19:00 19:00 WBC 5.9 RBC 3.08 L Hgb 10.3 L D Hct 30.1 L MCV 97.9 H D MCH 33.5 H MCHC 34.2 RDW 13.6 Plt Count 233 MPV 7.2 Neut % (Auto) 73.3 Lymph % (Auto) 13.9 L [place] % (Auto) 11.2 H Eos % (Auto) 1.1 Baso % (Auto) 0.5 Neut # (Auto) 4.3 Lymph # (Auto) 0.8 L [place] # (Auto) 0.7 Eos # (Auto) 0.1 Baso # (Auto) 0.0 PT INR APTT Sodium 139 Potassium 4.5 Chloride 106 Carbon Dioxide 26 Anion Gap 12 BUN 39 H Creatinine 0.8 Est GFR ( Amer) > 60 Est GFR (Non-Af Amer) > 60 Random Glucose 97 Calcium 8.6 Total Bilirubin 0.5 AST 26 ALT 34 Alkaline Phosphatase 51 Total Protein 5.8 L Albumin 3.3 L Globulin 2.5 Albumin/Globulin Ratio 1.4 Lipase 213 Urine Color Urine Clarity Urine pH Ur Specific [place] Urine Protein Urine Glucose (UA) Urine Ketones Urine Blood Urine Nitrate Urine Bilirubin Urine Urobilinogen Ur Leukocyte Esterase Urine RBC (Auto) Urine Microscopic WBC Stool Occult Blood Negative Blood Type Antibody Screen BBK History Checked 08/24/18 08/24/18 08/24/18 19:00 19:00 22:15 WBC RBC Hgb Hct MCV MCH MCHC RDW Plt Count MPV Neut % (Auto) Lymph % (Auto) [place] % (Auto) Eos % (Auto) Baso % (Auto) Neut # (Auto) Lymph # (Auto) [place] # (Auto) Eos # (Auto) Baso # (Auto) PT 11.5 INR 1.0 APTT 29.4 Sodium Potassium Chloride Carbon Dioxide Anion Gap BUN Creatinine Est GFR ( Amer) Est GFR (Non-Af Amer) Random Glucose Calcium Total Bilirubin AST ALT Alkaline Phosphatase Total Protein Albumin Globulin Albumin/Globulin Ratio Lipase Urine Color Yellow Urine Clarity Clear Urine pH 5.0 Ur Specific [place] 1.040 H Urine Protein Negative Urine Glucose (UA) Neg Urine Ketones Negative Urine Blood Negative Urine Nitrate Negative Urine Bilirubin Negative Urine Urobilinogen 0.2-1.0 Ur Leukocyte Esterase Neg Urine RBC (Auto) < 1 Urine Microscopic WBC < 1 Stool Occult Blood Blood Type B POSITIVE Antibody Screen Negative BBK History Checked Patient has bt 08/25/18 06:19 WBC 7.5 RBC 2.34 L Hgb 7.8 L D Hct 22.5 L MCV 96.4 H MCH 33.3 H MCHC 34.6 RDW 13.7 Plt Count 193 MPV Neut % (Auto) Lymph % (Auto) [place] % (Auto) Eos % (Auto) Baso % (Auto) Neut # (Auto) Lymph # (Auto) [place] # (Auto) Eos # (Auto) Baso # (Auto) PT INR APTT Sodium Potassium Chloride Carbon Dioxide Anion Gap BUN Creatinine Est GFR ( Amer) Est GFR (Non-Af Amer) Random Glucose Calcium Total Bilirubin AST ALT Alkaline Phosphatase Total Protein Albumin Globulin Albumin/Globulin Ratio Lipase Urine Color Urine Clarity Urine pH Ur Specific [place] Urine Protein Urine Glucose (UA) Urine Ketones Urine Blood Urine Nitrate Urine Bilirubin Urine Urobilinogen Ur Leukocyte Esterase Urine RBC (Auto) Urine Microscopic WBC Stool Occult Blood Blood Type Antibody Screen BBK History Checked Assessment & Plan - Assessment and Plan (Free Text) Assessment: 48M with resolved SBO/constipation Plan: NPO IVF Pain control Serial abdominal exams GI consult Recommending colonscopy Further recs discuss with Dr. Jones Zhong, PGY3
[2018-08-25] MEDS ORDERED: Piperacillin/Tazobact 3.375 GM in Sodium Chloride 0.9% 100 ML IVPB SCH (07:50)
[2018-08-25] MEDS: AMPHETAMINE SALT COMBINATION 10 MG TAB PO SCH ×3 (08:49→17:48)
--- NOTE | 2018-08-25 08:53 | RAD ---
Date of service: 08/24/2018 HISTORY: epigastric pain COMPARISON: 09/24/2017 FINDINGS: LUNGS: No active pulmonary disease. PLEURA: No significant pleural effusion identified, no pneumothorax apparent. CARDIOVASCULAR: There is absence of aortic atherosclerotic calcification on x-ray. Cardiomegaly-similar No significant appearing pulmonary venous congestion. OSSEOUS STRUCTURES: No significant abnormalities. VISUALIZED UPPER ABDOMEN: Surgical changes in each upper abdomen noted. OTHER FINDINGS: Interval inferred neurostimulator device projecting over mid thoracic spine on single frontal view. Correlate clinically IMPRESSION: Interval inferred neurostimulator device projecting over mid thoracic spine on single frontal view. Correlate clinically No interval cardiopulmonary pathology noted.
[2018-08-25] MEDS: Piperacillin/Tazobact 3.375 GM in Sodium Chloride 0.9% 100 ML IVPB SCH ×2 (09:28→15:59)
--- NOTE | 2018-08-25 10:49 | CP.PCM.CON ---
History of Present Illness - History of Present Illness History of Present Illness: 48 y/o male on medicare/disability taking amphetamine, aspirin, andogel, presents to [facility] with c/o abdominal pain and black stool. Patient deneis any dizziness, deneis any chest pain, denies taking any nsaid except for asa. ros: abdomineal pain, (+)black stool Pmx: testosterone deficiency, ADHD on pmphetamine, seizures SH: deneis any illicit drug use alelrgies: NKDA Review of Systems - Review of Systems All systems: reviewed and no additional remarkable complaints except - Constitutional Constitutional: As Per HPI Past Patient History - Past Medical History & Family History Past Medical History?: Yes - Past Social History Smoking Status: Former Smoker - CARDIAC Hx Cardiac Disorders: No - PULMONARY Hx Respiratory Disorders: No - NEUROLOGICAL Hx Neurological Disorder: Yes Hx Seizures: Yes - HEENT Hx HEENT Problems: No - RENAL Hx Chronic Kidney Disease: No - ENDOCRINE/METABOLIC Hx Endocrine Disorders: No - HEMATOLOGICAL/ONCOLOGICAL Hx Blood Disorders: No Hx Human Immunodeficiency Virus (HIV): No - INTEGUMENTARY Hx Dermatological Problems: No - MUSCULOSKELETAL/RHEUMATOLOGICAL Hx Musculoskeletal Disorders: No Hx Falls: No - GASTROINTESTINAL Hx Gastrointestinal Disorders: Yes - GENITOURINARY/GYNECOLOGICAL Hx Genitourinary Disorders: No - PSYCHIATRIC Hx Psychophysiologic Disorder: Yes Hx Anxiety: Yes Hx Depression: Yes Hx Substance Use: No - SURGICAL HISTORY Hx Surgeries: Yes Hx Appendectomy: Yes Hx Gastric Bypass Surgery: Yes Other/Comment: femoral hernia,penile implant, gluteal implant - ANESTHESIA Hx Anesthesia: Yes Hx Anesthesia Reactions: No Meds Allergies/Adverse Reactions: Allergies Allergy/AdvReac Type Severity Reaction Status Date / Time No Known Allergies Allergy Verified 08/25/16 00:45 - Medications Medications: Current Medications Amphetamine/Dextroamphetamine (Adderall) 10 mg PO TID [facility] Last Admin: 08/25/18 08:49 Dose: 10 mg Clonazepam (Klonopin) 0.5 mg PO Q12H [facility] Last Admin: 08/25/18 04:00 Dose: 0.5 mg Cyanocobalamin (Vitamin B12 1000 Mcg Tab) 2,000 mcg PO DAILY [facility] Last Admin: 08/25/18 08:49 Dose: 2,000 mcg Pantoprazole Sodium 40 mg/ (Sodium Chloride) 100 mls @ 20 mls/hr IVPB Q5H [facility] Last Admin: 08/25/18 05:54 Dose: 20 mls/hr Sodium Chloride (Sodium Chloride 0.9%) 1,000 mls @ 125 mls/hr IV .Q8H [facility] Stop: 08/26/18 00:58 Last Admin: 08/25/18 09:31 Dose: 125 mls/hr Piperacillin Sod/Tazobactam (Sod 3.375 gm/ Sodium Chloride) 100 mls @ 100 mls/hr IVPB Q6 [facility]; Protocol Last Admin: 08/25/18 09:28 Dose: 100 mls/hr Lamotrigine (Lamictal) 100 mg PO Q12 [facility] Last Admin: 08/25/18 08:49 Dose: 100 mg Morphine Sulfate (Morphine) 4 mg IVP Q6 PRN PRN Reason: Pain, severe (8-10) Morphine Sulfate (Morphine) 2 mg IVP Q6 PRN PRN Reason: Pain, moderate (4-7) Last Admin: 08/25/18 04:34 Dose: 2 mg Physical Exam - Head Exam Head Exam: ATRAUMATIC, NORMAL INSPECTION - Eye Exam Eye Exam: EOMI - ENT Exam ENT Exam: Mucous Membranes Moist - Respiratory Exam Respiratory Exam: Clear to Auscultation Bilateral, NORMAL BREATHING PATTERN. absent: Rales, Rhonchi, Wheezes, Respiratory Distress - Cardiovascular Exam Cardiovascular Exam: REGULAR RHYTHM, +S1, +S2 - GI/Abdominal Exam GI & Abdominal Exam: Normal Bowel Sounds, Soft. absent: Tenderness - Extremities Exam Extremities exam: Positive for: normal inspection Results - Vital Signs Recent Vital Signs: Last Vital Signs Temp 97.7 F 08/25/18 08:20 Pulse 80 08/25/18 08:20 Resp 20 08/25/18 08:20 BP 103/65 08/25/18 08:20 Pulse Ox 98 08/25/18 08:53 - Labs Result Diagrams: 08/25/18 06:19 08/24/18 19:00 Labs: Laboratory Results - last 24 hr 08/24/18 08/24/18 08/24/18 18:55 19:00 19:00 WBC 5.9 RBC 3.08 L Hgb 10.3 L D Hct 30.1 L MCV 97.9 H D MCH 33.5 H MCHC 34.2 RDW 13.6 Plt Count 233 MPV 7.2 Neut % (Auto) 73.3 Lymph % (Auto) 13.9 L [place] % (Auto) 11.2 H Eos % (Auto) 1.1 Baso % (Auto) 0.5 Neut # (Auto) 4.3 Lymph # (Auto) 0.8 L [place] # (Auto) 0.7 Eos # (Auto) 0.1 Baso # (Auto) 0.0 PT INR APTT Sodium 139 Potassium 4.5 Chloride 106 Carbon Dioxide 26 Anion Gap 12 BUN 39 H Creatinine 0.8 Est GFR ( Amer) > 60 Est GFR (Non-Af Amer) > 60 Random Glucose 97 Lactic Acid Calcium 8.6 Total Bilirubin 0.5 AST 26 ALT 34 Alkaline Phosphatase 51 Total Protein 5.8 L Albumin 3.3 L Globulin 2.5 Albumin/Globulin Ratio 1.4 Lipase 213 Urine Color Urine Clarity Urine pH Ur Specific [place] Urine Protein Urine Glucose (UA) Urine Ketones Urine Blood Urine Nitrate Urine Bilirubin Urine Urobilinogen Ur Leukocyte Esterase Urine RBC (Auto) Urine Microscopic WBC Stool Occult Blood Negative Blood Type Antibody Screen Crossmatch BBK History Checked 08/24/18 08/24/18 08/24/18 19:00 19:00 22:15 WBC RBC Hgb Hct MCV MCH MCHC RDW Plt Count MPV Neut % (Auto) Lymph % (Auto) [place] % (Auto) Eos % (Auto) Baso % (Auto) Neut # (Auto) Lymph # (Auto) [place] # (Auto) Eos # (Auto) Baso # (Auto) PT 11.5 INR 1.0 APTT 29.4 Sodium Potassium Chloride Carbon Dioxide Anion Gap BUN Creatinine Est GFR ( Amer) Est GFR (Non-Af Amer) Random Glucose Lactic Acid Calcium Total Bilirubin AST ALT Alkaline Phosphatase Total Protein Albumin Globulin Albumin/Globulin Ratio Lipase Urine Color Yellow Urine Clarity Clear Urine pH 5.0 Ur Specific [place] 1.040 H Urine Protein Negative Urine Glucose (UA) Neg Urine Ketones Negative Urine Blood Negative Urine Nitrate Negative Urine Bilirubin Negative Urine Urobilinogen 0.2-1.0 Ur Leukocyte Esterase Neg Urine RBC (Auto) < 1 Urine Microscopic WBC < 1 Stool Occult Blood Blood Type B POSITIVE Antibody Screen Negative Crossmatch See Detail BBK History Checked Patient has bt 08/25/18 08/25/18 06:19 08:18 WBC 7.5 RBC 2.34 L Hgb 7.8 L D Hct 22.5 L MCV 96.4 H MCH 33.3 H MCHC 34.6 RDW 13.7 Plt Count 193 MPV Neut % (Auto) Lymph % (Auto) [place] % (Auto) Eos % (Auto) Baso % (Auto) Neut # (Auto) Lymph # (Auto) [place] # (Auto) Eos # (Auto) Baso # (Auto) PT INR APTT Sodium Potassium Chloride Carbon Dioxide Anion Gap BUN Creatinine Est GFR ( Amer) Est GFR (Non-Af Amer) Random Glucose Lactic Acid 0.7 Calcium Total Bilirubin AST ALT Alkaline Phosphatase Total Protein Albumin Globulin Albumin/Globulin Ratio Lipase Urine Color Urine Clarity Urine pH Ur Specific [place] Urine Protein Urine Glucose (UA) Urine Ketones Urine Blood Urine Nitrate Urine Bilirubin Urine Urobilinogen Ur Leukocyte Esterase Urine RBC (Auto) Urine Microscopic WBC Stool Occult Blood Blood Type Antibody Screen Crossmatch BBK History Checked Assessment & Plan - Assessment and Plan (Free Text) Assessment: Acute blood loss anemia: likely upper gI bleed 2nd high BUN, start PPI, NPO, Gi eval -continue all home medications except for asa -scds -Patient remains hemodyanmically stable. -trtansfuse to keep hb/hct >8/24 - Date & Time Date: 08/25/18 Time: 10:43
--- NOTE | 2018-08-25 11:15 | CT ---
Date of service: 08/24/2018 PROCEDURE: CT Abdomen and Pelvis with contrast HISTORY: Abdominal pain COMPARISON: None available. TECHNIQUE: CT scan of the abdomen and pelvis was performed after administration of intravenous contrast. Oral contrast was not administered. Coronal and sagittal reformatted images were obtained. Contrast dose: 95 mL Omnipaque 300 Radiation dose: Total exam DLP = 895.62 mGy-cm. This CT exam was performed using one or more of the following dose reduction techniques: Automated exposure control, adjustment of the mA and/or kV according to patient size, and/or use of iterative reconstruction technique. FINDINGS: LOWER THORAX: The visualized lungs are clear. There is a tiny calcified granuloma in the left lower lobe. LIVER: Normal in size with homogeneous enhancement. No gross lesion or ductal dilatation. GALLBLADDER AND BILE DUCTS: Suspect small gallstones, wall thickening or pericholecystic fluid. PANCREAS: Normal in size with homogeneous enhancement. No gross lesion or ductal dilatation. SPLEEN: Normal in size and appearance. ADRENALS: No discrete nodule. KIDNEYS AND URETERS: Normal in size with homogeneous enhancement. No hydronephrosis. There is a 2.8 x 3.0 cm heterogeneously enhancing mass in the left interpolar region.. VASCULATURE: No aortic aneurysm. BOWEL: Evaluation of the bowel is limited in the absence of oral contrast. Postsurgical changes of gastric bypass surgery. The proximal small bowel loops are normal in caliber. There is fecalization of distal small bowel contents and mild dilatation of distal small bowel loops. Left colonic diverticulosis without CT evidence for acute diverticulitis. No bowel wall thickening or obstruction. APPENDIX: No inflammatory changes in the right lower quadrant. There is a clip in the right lower quadrant. Please correlate for appendectomy. PERITONEUM: No free fluid. No free air. LYMPH NODES: No enlarged lymph nodes. BLADDER: Well distended and normal in appearance. REPRODUCTIVE: The prostate gland is normal in size. BONES: No acute fracture. Mild hip dysplasia. There is diffuse bone demineralization and multilevel degenerative changes in the spine. A neurostimulator device remains in place in the lower thoracic canal. There are small sclerotic foci in the right ischium. OTHER FINDINGS: Postsurgical changes of ventral hernia repair. IMPRESSION: Mild dilatation of distal small bowel loops with fecalization of small bowel contents which may suggest chronic stasis or developing partial small bowel obstruction. Left colonic diverticulosis without CT evidence for acute diverticulitis. Postsurgical changes of gastric bypass surgery and ventral hernia repair. 2.8 x 3.0 cm heterogeneously enhancing mass in the interpolar region of the left kidney concerning for neoplasm. Dedicated MRI of the abdomen without and with intravenous contrast with renal protocol is recommended for definitive evaluation Small sclerotic foci in the right ischium may represent small [place] however sclerotic metastasis is also a differential consideration. Correlation with radionuclide bone scan is advised. A preliminary report was provided by [facility]. Important findings were discussed with NATIVIDAD Weldon in the ER on 08/25/2018 at 11:07 a.m.
--- NOTE | 2018-08-25 12:03 | CP.PCM.PN ---
Subjective - Date & Time of Evaluation Date of Evaluation: 08/25/18 Time of Evaluation: 11:04 - Subjective Subjective: 48 year old male admitted to [facility] because of Drop in HGB. Pt presented with abdominal pain. CT shows incedental mass in left kidney. Pt should be worked up for source of GI bleed if it is Neg for malignancy pt should Be be refered to a Robotic Urologist for partial nephrectomy . If GI work up is + for CA. Consideration should be given to Perc Bx by IR> Hosay Objective - Vital Signs/Intake and Output Vital Signs (last 24 hours): Temp Pulse Resp BP Pulse Ox 97.7 F 80 20 103/65 98 08/25/18 08:20 08/25/18 08:20 08/25/18 08:20 08/25/18 08:20 08/25/18 08:53 - Medications Medications: Current Medications Amphetamine/Dextroamphetamine (Adderall) 10 mg PO TID [facility] Last Admin: 08/25/18 08:49 Dose: 10 mg Clonazepam (Klonopin) 0.5 mg PO Q12H [facility] Last Admin: 08/25/18 04:00 Dose: 0.5 mg Cyanocobalamin (Vitamin B12 1000 Mcg Tab) 2,000 mcg PO DAILY [facility] Last Admin: 08/25/18 08:49 Dose: 2,000 mcg Pantoprazole Sodium 40 mg/ (Sodium Chloride) 100 mls @ 20 mls/hr IVPB Q5H [facility] Last Admin: 08/25/18 05:54 Dose: 20 mls/hr Sodium Chloride (Sodium Chloride 0.9%) 1,000 mls @ 125 mls/hr IV .Q8H [facility] Stop: 08/26/18 00:58 Last Admin: 08/25/18 09:31 Dose: 125 mls/hr Piperacillin Sod/Tazobactam (Sod 3.375 gm/ Sodium Chloride) 100 mls @ 100 mls/hr IVPB Q6 [facility]; Protocol Last Admin: 08/25/18 09:28 Dose: 100 mls/hr Lamotrigine (Lamictal) 100 mg PO Q12 [facility] Last Admin: 08/25/18 08:49 Dose: 100 mg Morphine Sulfate (Morphine) 4 mg IVP Q6 PRN PRN Reason: Pain, severe (8-10) Morphine Sulfate (Morphine) 2 mg IVP Q6 PRN PRN Reason: Pain, moderate (4-7) Last Admin: 08/25/18 04:34 Dose: 2 mg - Labs Labs: 08/25/18 06:19 08/24/18 19:00 PT 11.5 Seconds (9.8-13.1) 08/24/18 19:00 INR 1.0 08/24/18 19:00 APTT 29.4 Seconds (25.6-37.1) 08/24/18 19:00
[2018-08-25 15:12] LABS: HEMOGLOBIN 8.1 g/dL (12.0-18.0); MEAN CELL VOLUME 94.8 fl (80.0-94.0); MEAN CORPUSCULAR HEMOGLOBIN 32.2 pg (27.0-31.0); MEAN CORPUSCULAR HGB CONC 33.9 g/dL (33.0-37.0); RBC 2.51 Mil/uL (4.40-5.90); RED CELL DISTRIBUTION WIDTH 16.1 % (11.5-14.5); WHITE BLOOD COUNT 5.6 K/uL (4.8-10.8)
[2018-08-25] MEDS ORDERED: Magnesium Citrate Oral SOL (300 ml) PO ONE (17:14)
--- NOTE | 2018-08-25 18:01 | CP.PCM.CON ---
History of Present Illness - History of Present Illness History of Present Illness: 48 yo male admitted with abdominal pain and rectal bleeding.Patient has had prior gastric sleeve surgery and appendectomy. Has been having abdominal pain and constipation for approximately 1 and a half weeks. On the day of admission a bdominal pain had improved but noted rectal bleeding. Unsure if there was stool mixed with the blood. When he came to the ER he was anemic and tachycardic. Takes aspirin daily. Has h/o siezure disorder and short term memory loss as well as difficulty focusing. Has had meningitis in the past. Review of Systems - Constitutional Constitutional: Fatigue. absent: Chills - EENT Eyes: absent: Blurred Vision Ears: absent: Ear Discharge Nose/Mouth/Throat: absent: Epistaxis - Cardiovascular Cardiovascular: absent: Chest Pain - Respiratory Respiratory: absent: Cough - Gastrointestinal Gastrointestinal: absent: Abdominal Pain, Belching Past Patient History - Past Medical History & Family History Past Medical History?: Yes - Past Social History Smoking Status: Former Smoker - CARDIAC Hx Cardiac Disorders: No - PULMONARY Hx Respiratory Disorders: No - NEUROLOGICAL Hx Neurological Disorder: Yes Hx Seizures: Yes - HEENT Hx HEENT Problems: No - RENAL Hx Chronic Kidney Disease: No - ENDOCRINE/METABOLIC Hx Endocrine Disorders: No - HEMATOLOGICAL/ONCOLOGICAL Hx Blood Disorders: No Hx Human Immunodeficiency Virus (HIV): No - INTEGUMENTARY Hx Dermatological Problems: No - MUSCULOSKELETAL/RHEUMATOLOGICAL Hx Musculoskeletal Disorders: No Hx Falls: No - GASTROINTESTINAL Hx Gastrointestinal Disorders: Yes - GENITOURINARY/GYNECOLOGICAL Hx Genitourinary Disorders: No - PSYCHIATRIC Hx Psychophysiologic Disorder: Yes Hx Anxiety: Yes Hx Depression: Yes Hx Substance Use: No - SURGICAL HISTORY Hx Surgeries: Yes Hx Appendectomy: Yes Hx Gastric Bypass Surgery: Yes Other/Comment: femoral hernia,penile implant, gluteal implant - ANESTHESIA Hx Anesthesia: Yes Hx Anesthesia Reactions: No Meds Allergies/Adverse Reactions: Allergies Allergy/AdvReac Type Severity Reaction Status Date / Time No Known Allergies Allergy Verified 08/25/16 00:45 - Medications Medications: Current Medications Amphetamine/Dextroamphetamine (Adderall) 10 mg PO TID [facility] Last Admin: 08/25/18 17:48 Dose: 10 mg Clonazepam (Klonopin) 0.5 mg PO Q12H [facility] Last Admin: 08/25/18 15:59 Dose: 0.5 mg Cyanocobalamin (Vitamin B12 1000 Mcg Tab) 2,000 mcg PO DAILY [facility] Last Admin: 08/25/18 08:49 Dose: 2,000 mcg Pantoprazole Sodium 40 mg/ (Sodium Chloride) 100 mls @ 20 mls/hr IVPB Q5H [facility] Last Admin: 08/25/18 11:00 Dose: 20 mls/hr Sodium Chloride (Sodium Chloride 0.9%) 1,000 mls @ 125 mls/hr IV .Q8H [facility] Stop: 08/26/18 00:58 Last Admin: 08/25/18 09:31 Dose: 125 mls/hr Piperacillin Sod/Tazobactam (Sod 3.375 gm/ Sodium Chloride) 100 mls @ 100 mls/hr IVPB Q6 [facility]; Protocol Last Admin: 08/25/18 15:59 Dose: 100 mls/hr Lamotrigine (Lamictal) 100 mg PO Q12 [facility] Last Admin: 08/25/18 08:49 Dose: 100 mg Morphine Sulfate (Morphine) 4 mg IVP Q6 PRN PRN Reason: Pain, severe (8-10) Morphine Sulfate (Morphine) 2 mg IVP Q6 PRN PRN Reason: Pain, moderate (4-7) Last Admin: 08/25/18 04:34 Dose: 2 mg Physical Exam - Head Exam Head Exam: ATRAUMATIC - Eye Exam Eye Exam: Normal appearance - ENT Exam ENT Exam: Mucous Membranes Moist - Neck Exam Neck exam: Positive for: Normal Inspection - Respiratory Exam Respiratory Exam: Clear to Auscultation Bilateral - Cardiovascular Exam Cardiovascular Exam: REGULAR RHYTHM, +S1, +S2 - GI/Abdominal Exam GI & Abdominal Exam: Normal Bowel Sounds, Soft. absent: Tenderness Results - Vital Signs Recent Vital Signs: Last Vital Signs Temp 98 F 08/25/18 16:00 Pulse 96 H 08/25/18 16:00 Resp 18 08/25/18 16:00 BP 139/76 08/25/18 16:00 Pulse Ox 100 08/25/18 16:00 - Labs Result Diagrams: 08/25/18 14:46 08/24/18 19:00 Labs: Laboratory Results - last 24 hr 08/24/18 08/24/18 08/24/18 18:55 19:00 19:00 WBC 5.9 RBC 3.08 L Hgb 10.3 L D Hct 30.1 L MCV 97.9 H D MCH 33.5 H MCHC 34.2 RDW 13.6 Plt Count 233 MPV 7.2 Neut % (Auto) 73.3 Lymph % (Auto) 13.9 L [place] % (Auto) 11.2 H Eos % (Auto) 1.1 Baso % (Auto) 0.5 Neut # (Auto) 4.3 Lymph # (Auto) 0.8 L [place] # (Auto) 0.7 Eos # (Auto) 0.1 Baso # (Auto) 0.0 PT INR APTT Sodium 139 Potassium 4.5 Chloride 106 Carbon Dioxide 26 Anion Gap 12 BUN 39 H Creatinine 0.8 Est GFR ( Amer) > 60 Est GFR (Non-Af Amer) > 60 Random Glucose 97 Lactic Acid Calcium 8.6 Total Bilirubin 0.5 AST 26 ALT 34 Alkaline Phosphatase 51 Total Protein 5.8 L Albumin 3.3 L Globulin 2.5 Albumin/Globulin Ratio 1.4 Lipase 213 Urine Color Urine Clarity Urine pH Ur Specific [place] Urine Protein Urine Glucose (UA) Urine Ketones Urine Blood Urine Nitrate Urine Bilirubin Urine Urobilinogen Ur Leukocyte Esterase Urine RBC (Auto) Urine Microscopic WBC Stool Occult Blood Negative Blood Type Antibody Screen Crossmatch BBK History Checked 08/24/18 08/24/18 08/24/18 19:00 19:00 22:15 WBC RBC Hgb Hct MCV MCH MCHC RDW Plt Count MPV Neut % (Auto) Lymph % (Auto) [place] % (Auto) Eos % (Auto) Baso % (Auto) Neut # (Auto) Lymph # (Auto) [place] # (Auto) Eos # (Auto) Baso # (Auto) PT 11.5 INR 1.0 APTT 29.4 Sodium Potassium Chloride Carbon Dioxide Anion Gap BUN Creatinine Est GFR ( Amer) Est GFR (Non-Af Amer) Random Glucose Lactic Acid Calcium Total Bilirubin AST ALT Alkaline Phosphatase Total Protein Albumin Globulin Albumin/Globulin Ratio Lipase Urine Color Yellow Urine Clarity Clear Urine pH 5.0 Ur Specific [place] 1.040 H Urine Protein Negative Urine Glucose (UA) Neg Urine Ketones Negative Urine Blood Negative Urine Nitrate Negative Urine Bilirubin Negative Urine Urobilinogen 0.2-1.0 Ur Leukocyte Esterase Neg Urine RBC (Auto) < 1 Urine Microscopic WBC < 1 Stool Occult Blood Blood Type B POSITIVE Antibody Screen Negative Crossmatch See Detail BBK History Checked Patient has bt 08/25/18 08/25/18 08/25/18 06:19 08:18 14:46 WBC 7.5 5.6 RBC 2.34 L 2.51 L Hgb 7.8 L D 8.1 L Hct 22.5 L 23.8 L MCV 96.4 H 94.8 H MCH 33.3 H 32.2 H MCHC 34.6 33.9 RDW 13.7 16.1 H Plt Count 193 191 MPV Neut % (Auto) Lymph % (Auto) [place] % (Auto) Eos % (Auto) Baso % (Auto) Neut # (Auto) Lymph # (Auto) [place] # (Auto) Eos # (Auto) Baso # (Auto) PT INR APTT Sodium Potassium Chloride Carbon Dioxide Anion Gap BUN Creatinine Est GFR ( Amer) Est GFR (Non-Af Amer) Random Glucose Lactic Acid 0.7 Calcium Total Bilirubin AST ALT Alkaline Phosphatase Total Protein Albumin Globulin Albumin/Globulin Ratio Lipase Urine Color Urine Clarity Urine pH Ur Specific [place] Urine Protein Urine Glucose (UA) Urine Ketones Urine Blood Urine Nitrate Urine Bilirubin Urine Urobilinogen Ur Leukocyte Esterase Urine RBC (Auto) Urine Microscopic WBC Stool Occult Blood Blood Type Antibody Screen Crossmatch BBK History Checked - Imaging and Cardiology CT scan - abdomen Status: Image reviewed by me, Report reviewed by me Assessment & Plan (1) GI bleed Assessment and Plan: Patient with H/o ASA ingestion presenting with GI bleed. Was having epigastric pain partially responsive to Pepcid at home. Also noted to have bright red blood per rectum and diverticuli on CT exam. Will do upper and lower endoscopy tomorrow and hold ASA for now. PPI therapy. Maintain Hgb above 8. Status: Acute
[2018-08-25 21:56] LABS: HEMOGLOBIN 8.4 g/dL (12.0-18.0); MEAN CELL VOLUME 93.4 fl (80.0-94.0); MEAN CORPUSCULAR HEMOGLOBIN 32.5 pg (27.0-31.0); MEAN CORPUSCULAR HGB CONC 34.8 g/dL (33.0-37.0); RBC 2.59 Mil/uL (4.40-5.90); RED CELL DISTRIBUTION WIDTH 16.4 % (11.5-14.5); WHITE BLOOD COUNT 6.1 K/uL (4.8-10.8)
[2018-08-26] MEDS: Pantoprazole 40 MG in Sodium Chloride 0.9% 100 ML IVPB SCH ×3 (00:20→21:51)
[2018-08-26] MEDS: Piperacillin/Tazobact 3.375 GM in Sodium Chloride 0.9% 100 ML IVPB SCH ×2 (02:19→04:39)
[2018-08-26] MEDS: Sodium Chloride 0.9% 1,000 ML IV SCH (02:21)
[2018-08-26 06:09] LABS: HEMOGLOBIN 7.9 g/dL (12.0-18.0); MEAN CELL VOLUME 93.9 fl (80.0-94.0); MEAN CORPUSCULAR HEMOGLOBIN 32.8 pg (27.0-31.0); RBC 2.39 Mil/uL (4.40-5.90); RED CELL DISTRIBUTION WIDTH 16.5 % (11.5-14.5); WHITE BLOOD COUNT 5.1 K/uL (4.8-10.8)
[2018-08-26 06:21] LABS: BLOOD UREA NITROGEN 19 mg/dl (9-20); GFR NON-AFRICAN AMERICAN > 60
[2018-08-26] MEDS: AMPHETAMINE SALT COMBINATION 10 MG TAB PO SCH ×3 (08:49→16:40)
--- NOTE | 2018-08-26 09:07 | CARD ---
APPROVED REPORT Date of service: 08/24/2018 EKG Measurement Heart [id number] <Conclusion> Sinus tachycardia Otherwise normal ECG
--- NOTE | 2018-08-26 09:32 | CP.PCM.PN ---
Subjective - Date & Time of Evaluation Date of Evaluation: 08/26/18 Time of Evaluation: 09:30 - Subjective Subjective: PAtient had Gi prep overnight Objective - Vital Signs/Intake and Output Vital Signs (last 24 hours): Temp Pulse Resp BP Pulse Ox 97.7 F 87 18 117/66 100 08/26/18 08:42 08/26/18 08:42 08/26/18 08:42 08/26/18 08:42 08/26/18 08:00 Intake and Output: 08/26/18 08/26/18 06:59 18:59 Intake Total 1940 0 Balance 1940 0 - Medications Medications: Current Medications Amphetamine/Dextroamphetamine (Adderall) 10 mg PO TID [facility] Last Admin: 08/26/18 08:49 Dose: Not Given Clonazepam (Klonopin) 0.5 mg PO Q12H [facility] Last Admin: 08/26/18 04:39 Dose: 0.5 mg Cyanocobalamin (Vitamin B12 1000 Mcg Tab) 2,000 mcg PO DAILY [facility] Last Admin: 08/25/18 08:49 Dose: 2,000 mcg Pantoprazole Sodium 40 mg/ (Sodium Chloride) 100 mls @ 20 mls/hr IVPB Q5H [facility] Last Admin: 08/26/18 07:10 Dose: 20 mls/hr Lamotrigine (Lamictal) 100 mg PO Q12 [facility] Last Admin: 08/26/18 08:49 Dose: Not Given Morphine Sulfate (Morphine) 4 mg IVP Q6 PRN PRN Reason: Pain, severe (8-10) Morphine Sulfate (Morphine) 2 mg IVP Q6 PRN PRN Reason: Pain, moderate (4-7) Last Admin: 08/25/18 04:34 Dose: 2 mg - Labs Labs: 08/26/18 04:30 08/26/18 04:30 PT 11.5 Seconds (9.8-13.1) 08/24/18 19:00 INR 1.0 08/24/18 19:00 APTT 29.4 Seconds (25.6-37.1) 08/24/18 19:00 - Head Exam Head Exam: ATRAUMATIC, NORMAL INSPECTION - Eye Exam Eye Exam: Normal appearance - ENT Exam ENT Exam: Mucous Membranes Moist - Neck Exam Neck Exam: Full ROM, Normal Inspection - Respiratory Exam Respiratory Exam: NORMAL BREATHING PATTERN - Cardiovascular Exam Cardiovascular Exam: +S1, +S2 - GI/Abdominal Exam GI & Abdominal Exam: Soft. absent: Distended, Firm, Guarding, Rigid, Tenderness - Extremities Exam Extremities Exam: Full ROM, Normal Inspection Assessment and Plan - Assessment and Plan (Free Text) Assessment: Upper gI bleed 2nd : continuer NPO -IV ppi -Gi to scope -contineu dvt/pud ppx Patient remains hemodynamically stable.
--- NOTE | 2018-08-26 10:49 | CP.PCM.PN ---
Subjective - Date & Time of Evaluation Date of Evaluation: 08/26/18 Time of Evaluation: 10:46 - Subjective Subjective: General Surgery Pt seen and examined this AM. He reports he continues to have dark bloody BMs. He is c/o weakness today and is currently receiving blood. He is also pending to be scoped today and has been getting bowel prepped. No abd pain. (-) N/V. Labs and vitals noted. Hgb 7.9 PE Gen: Pt laying in bed in NAD Skin: warm and dry Eyes: (-) conjunctival pallor Cardio: s1s2 RRR Lungs: CTA bilaerally Abd: Soft NTND Extr: (-) calf tenderness bilaterally A/P GI bleed Keep NPO Continue IVF Transfuse prn Monitor bowel function Objective - Vital Signs/Intake and Output Vital Signs (last 24 hours): Temp Pulse Resp BP Pulse Ox 98.5 F 87 18 138/87 100 08/26/18 09:42 08/26/18 09:42 08/26/18 09:42 08/26/18 09:42 08/26/18 08:00 Intake and Output: 08/26/18 08/26/18 06:59 18:59 Intake Total 1940 0 Balance 1940 0 - Medications Medications: Current Medications Amphetamine/Dextroamphetamine (Adderall) [address] [facility] Last Admin: 08/26/18 08:49 Dose: Not Given Clonazepam (Klonopin) 0.[address] [facility] Last Admin: 08/26/18 04:39 Dose: 0.5 mg Cyanocobalamin (Vitamin B12 1000 Mcg Tab) 2,[address] [facility] Last Admin: 08/25/18 08:49 Dose: 2,000 mcg Pantoprazole Sodium 40 mg/ (Sodium Chloride) 100 mls @ 20 mls/hr IVPB Q5H [facility] Last Admin: 08/26/18 07:10 Dose: 20 mls/hr Lamotrigine (Lamictal) [address] [facility] Last Admin: 08/26/18 08:49 Dose: Not Given Morphine Sulfate (Morphine) 4 mg IVP Q6 PRN PRN Reason: Pain, severe (8-10) Morphine Sulfate (Morphine) 2 mg IVP Q6 PRN PRN Reason: Pain, moderate (4-7) Last Admin: 08/25/18 04:34 Dose: 2 mg - Labs Labs: 08/26/18 04:30 08/26/18 04:30 PT 11.5 Seconds (9.8-13.1) 08/24/18 19:00 INR 1.0 08/24/18 19:00 APTT 29.4 Seconds (25.6-37.1) 08/24/18 19:00
[2018-08-26] MEDS ORDERED: Lactated Ringer's 500 ML IV ONE (10:59)
[2018-08-26] MEDS ORDERED: Midazolam 2 MG/2 ML VIAL ONE (11:07)
[2018-08-26] MEDS ORDERED: Propofol 10 mg/ml Inj (20 ML) ONE (11:08)
--- NOTE | 2018-08-26 11:41 | CP.PCM.PN ---
Subjective - Date & Time of Evaluation Date of Evaluation: 08/26/18 Time of Evaluation: 10:00 - Subjective Subjective: 48-year-old male seen bedside in no acute distress, finishing water enema (requested via Dr. Blackburn) and PRBC transfusion. Today Hg/Hct 7.9/22.5 from 8.4/24.2 (s/p PRBC x1). He admits to feeling better than yesterday. Reports one episode of bloody bowel movement overnight but denies abdominal pain, chest pain, palpitations, dizziness, vomiting, SOB, cough and weakness. Objective - Vital Signs/Intake and Output Vital Signs (last 24 hours): Temp Pulse Resp BP Pulse Ox 98 F 101 H 18 127/67 100 08/26/18 11:01 08/26/18 11:01 08/26/18 11:01 08/26/18 11:01 08/26/18 11:01 Intake and Output: 08/26/18 08/26/18 06:59 18:59 Intake Total 1940 450 Balance 1940 450 - Medications Medications: Current Medications Amphetamine/Dextroamphetamine (Adderall) 10 mg PO TID [facility] Last Admin: 08/26/18 08:49 Dose: Not Given Clonazepam (Klonopin) 0.5 mg PO Q12H [facility] Last Admin: 08/26/18 04:39 Dose: 0.5 mg Cyanocobalamin (Vitamin B12 1000 Mcg Tab) 2,000 mcg PO DAILY [facility] Last Admin: 08/25/18 08:49 Dose: 2,000 mcg Pantoprazole Sodium 40 mg/ (Sodium Chloride) 100 mls @ 20 mls/hr IVPB Q5H [facility] Last Admin: 08/26/18 07:10 Dose: 20 mls/hr Lamotrigine (Lamictal) 100 mg PO Q12 [facility] Last Admin: 08/26/18 08:49 Dose: Not Given Morphine Sulfate (Morphine) 4 mg IVP Q6 PRN PRN Reason: Pain, severe (8-10) Morphine Sulfate (Morphine) 2 mg IVP Q6 PRN PRN Reason: Pain, moderate (4-7) Last Admin: 08/25/18 04:34 Dose: 2 mg - Labs Labs: 08/26/18 04:30 08/26/18 04:30 PT 11.5 Seconds (9.8-13.1) 08/24/18 19:00 INR 1.0 08/24/18 19:00 APTT 29.4 Seconds (25.6-37.1) 08/24/18 19:00 - Constitutional Appears: Non-toxic - Head Exam Head Exam: NORMAL INSPECTION - ENT Exam ENT Exam: Mucous Membranes Moist - Neck Exam Neck Exam: Full ROM - Respiratory Exam Respiratory Exam: Clear to Ausculation Bilateral, NORMAL BREATHING PATTERN - Cardiovascular Exam Cardiovascular Exam: REGULAR RHYTHM, +S1, +S2 - GI/Abdominal Exam GI & Abdominal Exam: Soft. absent: Distended, Guarding, Tenderness - Extremities Exam Extremities Exam: Normal Inspection - Neurological Exam Neurological Exam: Alert, Awake, Normal Gait, Oriented x3 - Psychiatric Exam Psychiatric exam: Normal Affect, Normal Mood - Skin Skin Exam: Intact, Pallor (improved from yesterday), Warm Assessment and Plan - Assessment and Plan (Free Text) Assessment: 48-year-old male with PMH of seizure disorder, meningitis and gastric bypass surgery was admitted for abdominal pain and rectal bleeding. Plan: GI Bleed - Hg/Hct 7.9/22.5 (yesterday 8.4/24.2 s/p PRBC x1) - Hold ASA - 1 PRBC today, (2 total through admission) - Maintain Hg >8 -As per surgery: ---Dr. Goldman (08/25/18): NPO, IVF, Pain control, Serial abdominal exams, GI consult, Recommending colonscopy ---Dr. Olea (08/25/18): needs endo and colon, may need bleeding scan, may need angio. transfuse as needed, PPI. - Upper and lower endoscopy today (08/26) ---Post EGD reveals a large clean base duodenal ulcer; pending final report -Continue PPI Left Kidney Mass - Incidental finding on CT - As per Nephrology (Dr. Masters): Pt should be worked up for source of GI bleed if it is Neg for malignancy pt should Be be refered to a Robotic Urologist for partial nephrectomy . If GI work up is + for CA. Consideration should be given to Perc Bx by IR - F/u MRI renal protocol Hx Seizure Disorder -Lamictal 100 mg Q12H DVT Prophylaxis - SCDs
[2018-08-26 17:55] LABS: FOLATE 14.8 ng/mL
[2018-08-27] MEDS: Pantoprazole 40 MG in Sodium Chloride 0.9% 100 ML IVPB SCH ×2 (04:10→10:00)
[2018-08-27 05:39] LABS: BASO % 0.7 % (0.0-2.0); EOS # 0.1 K/uL (0.0-0.7); EOS % 2.1 % (0.0-4.0); HEMOGLOBIN 8.5 g/dL (12.0-18.0); LYMPH # 0.9 K/uL (1.0-4.3); LYMPH % 25.7 % (20.0-40.0); MEAN CELL VOLUME 92.7 fl (80.0-94.0); MEAN CORPUSCULAR HEMOGLOBIN 32.4 pg (27.0-31.0); MEAN PLATELET VOLUME 7.2 fl (7.2-11.7); MONO # 0.4 K/uL (0.0-0.8); MONO % 10.6 % (0.0-10.0); NEUT # 2.1 K/uL (1.8-7.0); NEUT % 60.9 % (50.0-75.0); NRBC % 0.1 % (0.0-0.0); RBC 2.63 Mil/uL (4.40-5.90); RED CELL DISTRIBUTION WIDTH 16.2 % (11.5-14.5); WHITE BLOOD COUNT 3.5 K/uL (4.8-10.8)
[2018-08-27 05:56] LABS: BLOOD UREA NITROGEN 8 mg/dl (9-20); CALCIUM 8.2 mg/dL (8.4-10.2); GFR NON-AFRICAN AMERICAN > 60
[2018-08-27 06:49] VITALS: O2SAT 100
--- NOTE | 2018-08-27 08:17 | CP.PCM.PN ---
Subjective - Date & Time of Evaluation Date of Evaluation: 08/27/18 Time of Evaluation: 07:10 - Subjective Subjective: Patient seen and examined. No acute events over night. S/p 2uPRBC. EGD findings of duodenal ulcer w/ no stigmata. Has not had a bloody BM since colonoscopy. Tolerated CLD. Objective - Vital Signs/Intake and Output Vital Signs (last 24 hours): Temp Pulse Resp BP Pulse Ox 98.7 F 88 18 109/55 L 100 08/27/18 04:00 08/27/18 06:00 08/27/18 06:00 08/27/18 06:00 08/27/18 06:00 Intake and Output: 08/27/18 08/27/18 06:59 18:59 Intake Total 694 Output Total 1400 900 Balance -706 -900 - Medications Medications: Current Medications Amphetamine/Dextroamphetamine (Adderall) 10 mg PO TID [facility] Last Admin: 08/26/18 16:40 Dose: 10 mg Clonazepam (Klonopin) 0.5 mg PO Q12H [facility] [place] Last Admin: 08/27/18 04:09 Dose: 0.5 mg Cyanocobalamin (Vitamin B12 1000 Mcg Tab) 2,000 mcg PO DAILY [facility] [place] Last Admin: 08/26/18 13:13 Dose: 2,000 mcg Pantoprazole Sodium 40 mg/ (Sodium Chloride) 100 mls @ 20 mls/hr IVPB Q5H [facility] [place] Last Admin: 08/27/18 04:10 Dose: 20 mls/hr Lamotrigine (Lamictal) 100 mg PO Q12 [facility] Last Admin: 08/26/18 21:46 Dose: 100 mg Morphine Sulfate (Morphine) 4 mg IVP Q6 PRN PRN Reason: Pain, severe (8-10) Morphine Sulfate (Morphine) 2 mg IVP Q6 PRN PRN Reason: Pain, moderate (4-7) Last Admin: 08/25/18 04:34 Dose: 2 mg - Labs Labs: 08/27/18 04:25 08/27/18 04:25 PT 11.5 Seconds (9.8-13.1) 08/24/18 19:00 INR 1.0 08/24/18 19:00 APTT 29.4 Seconds (25.6-37.1) 08/24/18 19:00 - Constitutional Appears: No Acute Distress - Head Exam Head Exam: NORMOCEPHALIC - Eye Exam Eye Exam: EOMI, Normal appearance - ENT Exam ENT Exam: Mucous Membranes Moist - Respiratory Exam Respiratory Exam: NORMAL BREATHING PATTERN - Cardiovascular Exam Cardiovascular Exam: +S1, +S2 - GI/Abdominal Exam GI & Abdominal Exam: Soft. absent: Distended, Firm, Guarding, Rigid, Tenderness, Rebound - Neurological Exam Neurological Exam: Alert, Awake, Oriented x3 - Skin Skin Exam: Dry, Intact, Warm Assessment and Plan - Assessment and Plan (Free Text) Assessment: 48M with GI bleed Plan: Monitor Hgb Adv diet per GI Bloody BMs have stopped No plans for acute surgical intervention at this present time Of note, patient stated spinal stimulator has MRI compatible setting. Control is at bedside. Further recs per Dr. Lefty Arzate PGY3
[2018-08-27 08:41] VITALS: TEMP 98
[2018-08-27] MEDS: AMPHETAMINE SALT COMBINATION 10 MG TAB PO SCH ×2 (08:48→12:24)
--- NOTE | 2018-08-27 09:18 | CP.PCM.PN ---
Subjective - Date & Time of Evaluation Date of Evaluation: 08/27/18 Time of Evaluation: 09:15 - Subjective Subjective: General Surgery Pt seen and examined this AM. Pt denies having any bloody BMs. Last one was 2 nights ago. (-) N/V. Discussed case with Dr. Blackburn, he is s/p EGD and colonoscopy yesterday with no active bleeding found. Diet advanced this AM by GI. Labs and vitals noted. Hgb improved post transfusion to 8.5 from 7.9. PE Gen: Pt sitting in bed eating in NAD Skin: warm and dry Cardio: s1s2 RRR Lungs: CTA bilaterally Abd: Soft NTND Extr: (-) calf tenderness bilaterally A/P GI bleed Diet advanced per GI Monitor labs Monitor bowel function Objective - Vital Signs/Intake and Output Vital Signs (last 24 hours): Temp Pulse Resp BP Pulse Ox 98.0 F 83 20 128/80 100 08/27/18 08:00 08/27/18 08:00 08/27/18 08:00 08/27/18 08:00 08/27/18 08:00 Intake and Output: 08/27/18 08/27/18 06:59 18:59 Intake Total 694 Output Total 1400 900 Balance -706 -900 - Medications Medications: Current Medications Amphetamine/Dextroamphetamine (Adderall) 10 mg PO TID [facility] Last Admin: 08/27/18 08:48 Dose: 10 mg Clonazepam (Klonopin) 0.5 mg PO Q12H [facility] Last Admin: 08/27/18 04:09 Dose: 0.5 mg Cyanocobalamin (Vitamin B12 1000 Mcg Tab) 2,000 mcg PO DAILY [facility] Last Admin: 08/27/18 08:48 Dose: 2,000 mcg Pantoprazole Sodium 40 mg/ (Sodium Chloride) 100 mls @ 20 mls/hr IVPB Q5H [facility] Last Admin: 08/27/18 04:10 Dose: 20 mls/hr Lamotrigine (Lamictal) 100 mg PO Q12 [facility] Last Admin: 08/27/18 08:49 Dose: 100 mg Morphine Sulfate (Morphine) 4 mg IVP Q6 PRN PRN Reason: Pain, severe (8-10) Morphine Sulfate (Morphine) 2 mg IVP Q6 PRN PRN Reason: Pain, moderate (4-7) Last Admin: 08/25/18 04:34 Dose: 2 mg - Labs Labs: 08/27/18 04:25 08/27/18 04:25 PT 11.5 Seconds (9.8-13.1) 08/24/18 19:00 INR 1.0 08/24/18 19:00 APTT 29.4 Seconds (25.6-37.1) 08/24/18 19:00
[2018-08-27 12:21] VITALS: BP 114/61; PULSE 99; RESP 18
[2018-08-27] MEDS ORDERED: Sodium Chloride 0.9% 50 ML IV ONE (12:47)
[2018-08-27] MEDS ORDERED: Gadodiamide 287 MG/ML VIAL (15ML) IV ONE (12:47)
--- NOTE | 2018-08-27 13:59 | CP.PCM.PN ---
Subjective - Date & Time of Evaluation Date of Evaluation: 08/27/18 Time of Evaluation: 13:56 - Subjective Subjective: Patient remains stable with no further bleeding. Objective - Vital Signs/Intake and Output Vital Signs (last 24 hours): Temp Pulse Resp BP Pulse Ox 98.0 F 99 H 18 114/61 100 08/27/18 08:00 08/27/18 10:00 08/27/18 10:00 08/27/18 10:00 08/27/18 10:00 Intake and Output: 08/27/18 08/27/18 06:59 18:59 Intake Total 694 400 Output Total 1400 900 Balance -706 -500 - Medications Medications: Current Medications Amphetamine/Dextroamphetamine (Adderall) 10 mg PO TID [facility] Last Admin: 08/27/18 12:24 Dose: 10 mg Clonazepam (Klonopin) 0.5 mg PO Q12H [facility] Last Admin: 08/27/18 04:09 Dose: 0.5 mg Cyanocobalamin (Vitamin B12 1000 Mcg Tab) 2,000 mcg PO DAILY [facility] Last Admin: 08/27/18 08:48 Dose: 2,000 mcg Pantoprazole Sodium 40 mg/ (Sodium Chloride) 100 mls @ 20 mls/hr IVPB Q5H [facility] Last Admin: 08/27/18 10:00 Dose: 20 mls/hr Lamotrigine (Lamictal) 100 mg PO Q12 [facility] Last Admin: 08/27/18 08:49 Dose: 100 mg Morphine Sulfate (Morphine) 4 mg IVP Q6 PRN PRN Reason: Pain, severe (8-10) Morphine Sulfate (Morphine) 2 mg IVP Q6 PRN PRN Reason: Pain, moderate (4-7) Last Admin: 08/25/18 04:34 Dose: 2 mg - Labs Labs: 08/27/18 04:25 08/27/18 04:25 PT 11.5 Seconds (9.8-13.1) 08/24/18 19:00 INR 1.0 08/24/18 19:00 APTT 29.4 Seconds (25.6-37.1) 08/24/18 19:00 - Head Exam Head Exam: ATRAUMATIC - ENT Exam ENT Exam: Mucous Membranes Moist - Respiratory Exam Respiratory Exam: Clear to Ausculation Bilateral - Cardiovascular Exam Cardiovascular Exam: REGULAR RHYTHM - GI/Abdominal Exam GI & Abdominal Exam: Soft. absent: Tenderness Assessment and Plan (1) GI bleed Assessment & Plan: Hgb slightly up today. No sign og furthet bleeding from duodenal ulcer. When discharged should be given pantoprazole 40 mg po BID Status: Acute
--- NOTE | 2018-08-27 14:28 | PQF ---
PROVIDER RESPONSE TEXT: Provider was unable to determine a response for this query. REVIEWER QUERY TEXT: Clarification of Clinical Diagnostic Findings Please clarify the etiology of the GI Bleeding if known after the work up is completed: i.e due to Du odenal Ulcer: if yes Acute or Chronic Duodenal Ulcer if known etc. OR: Unable to determine OR: Other explanation of clinical finding 08/26 Colonoscopy report: red blood was found in the entire colon; non-bleeding internal hemorrhoids; m edium sized 08/26 Upper GI Endo report : One non-bleeding cratered duodenal ulcer no stigmata of bleeding. Biopsie s taken 08/26: Resident/Attending: progress note: G/I Bleeed:Hg/Hct 7.9/22.5 (yesterday 8.4/24.2 s/p PRBC x1) - Hold ASA - 1 PRBC today, (2 total through admission) - Maintain Hg >8 -As per surgery: ---Dr.Orellan jiménez (08/25/18): NPO, IVF, Pain control, Serial abdominal exams, GI consult, Recommending colonscopy ---Dr Swift (08/25/18): needs endo and colon, may need bleeding scan, may need angio. transfuse as needed, P PI.--Upper and lower endoscopy today (08/26) ---Post EGD reveals a large clean base duodenal ulcer; tamanna otero final report -Continue PPI 08/27 Surgery progress note : EGD findings of duodenal ulcer w/ no stigmata. The patient's Clinical Indicators include: -- Query created by: Lori Herman on 08/27/2018 9:56 AM Electronically signed by: 08/27/2018 2:25 PM
--- NOTE | 2018-08-27 14:57 | CP.PCM.DIS ---
Provider - Provider Date of Admission: 08/25/18 19:27 Attending physician: Guanaco Briggs Consults: 08/25/18 00:26 Surgery [General Surgery Consult] Stat Comment: Consulting Provider: Nick Olea Consulting Physician: Nick Olea Reason for Consult: Partial SBO 08/25/18 08:00 Gastroenterology Consult Routine Comment: Consulting Provider: Jones Blackburn Consulting Physician: Jones Blackburn Reason for Consult: Partial SBO vs ileus 08/25/18 08:01 Urology Consult Routine Comment: left renal mass suspicious for renal cell carcinom Consulting Provider: Dannie Masters Jr. Consulting Physician: Dannie Masters Jr. 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 Time Spent in preparation of Discharge (in minutes): 25 Diagnosis - Discharge Diagnosis (1) GI bleed Status: Acute Hospital Course - Lab Results Lab Results: Micro Results 08/25/18 10:40 Naris MRSA Culture (Admit) - Final MRSA NOT DETECTED Most Recent Lab Values WBC 3.5 K/uL (4.8-10.8) L 08/27/18 04:25 RBC 2.63 Mil/uL (4.40-5.90) L 08/27/18 04:25 Hgb 8.5 g/dL (12.0-18.0) L 08/27/18 04:25 Hct 24.4 % (35.0-51.0) L 08/27/18 04:25 MCV 92.7 fl (80.0-94.0) 08/27/18 04:25 MCH 32.4 pg (27.0-31.0) H 08/27/18 04:25 MCHC 35.0 g/dL (33.0-37.0) 08/27/18 04:25 RDW 16.2 % (11.5-14.5) H 08/27/18 04:25 Plt Count 176 K/uL (130-400) 08/27/18 04:25 MPV 7.2 fl (7.2-11.7) 08/27/18 04:25 Neut % (Auto) 60.9 % (50.0-75.0) 08/27/18 04:25 Lymph % (Auto) 25.7 % (20.0-40.0) 08/27/18 04:25 [place] % (Auto) 10.6 % (0.0-10.0) H 08/27/18 04:25 Eos % (Auto) 2.1 % (0.0-4.0) 08/27/18 04:25 Baso % (Auto) 0.7 % (0.0-2.0) 08/27/18 04:25 Neut # (Auto) 2.1 K/uL (1.8-7.0) 08/27/18 04:25 Lymph # (Auto) 0.9 K/uL (1.0-4.3) L 08/27/18 04:25 [place] # (Auto) 0.4 K/uL (0.0-0.8) 08/27/18 04:25 Eos # (Auto) 0.1 K/uL (0.0-0.7) 08/27/18 04:25 Baso # (Auto) 0.0 K/uL (0.0-0.2) 08/27/18 04:25 PT 11.5 Seconds (9.8-13.1) 08/24/18 19:00 INR 1.0 08/24/18 19:00 APTT 29.4 Seconds (25.6-37.1) 08/24/18 19:00 Sodium 137 mmol/l (132-148) 08/27/18 04:25 Potassium 3.8 MMOL/L (3.6-5.0) 08/27/18 04:25 Chloride 104 mmol/L (98-107) 08/27/18 04:25 Carbon Dioxide 27 mmol/L (22-30) 08/27/18 04:25 Anion Gap 10 (10-20) 08/27/18 04:25 BUN 8 mg/dl (9-20) L 08/27/18 04:25 Creatinine 0.9 mg/dl (0.8-1.5) 08/27/18 04:25 Est GFR ( Amer) > 60 08/27/18 04:25 Est GFR (Non-Af Amer) > 60 08/27/18 04:25 Random Glucose 85 mg/dL (75-110) 08/27/18 04:25 Lactic Acid 0.7 MMOL/L (0.7-2.1) 08/25/18 08:18 Calcium 8.2 mg/dL (8.4-10.2) L 08/27/18 04:25 Total Bilirubin 0.5 mg/dl (0.2-1.3) 08/24/18 19:00 AST 26 U/L (17-59) 08/24/18 19:00 ALT 34 U/L (21-72) 08/24/18 19:00 Alkaline Phosphatase 51 U/L (38-126) 08/24/18 19:00 Total Protein 5.8 G/DL (6.3-8.2) L 08/24/18 19:00 Albumin 3.3 g/dL (3.5-5.0) L 08/24/18 19:00 Globulin 2.5 gm/dL (2.2-3.9) 08/24/18 19:00 Albumin/Globulin Ratio 1.4 (1.0-2.1) 08/24/18 19:00 Lipase 213 U/L (23-300) 08/24/18 19:00 Vitamin B12 > 1000 pg/mL (239-931) H 08/26/18 04:30 Folate 14.8 ng/mL 08/26/18 04:30 Urine Color Yellow (YELLOW) 08/24/18 22:15 Urine Clarity Clear (Clear) 08/24/18 22:15 Urine pH 5.0 (5.0-8.0) 08/24/18 22:15 Ur Specific [place] 1.040 (1.003-1.030) H 08/24/18 22:15 Urine Protein Negative mg/dL (NEGATIVE) 08/24/18 22:15 Urine Glucose (UA) Neg mg/dL (NEGATIVE) 08/24/18 22:15 Urine Ketones Negative mg/dL (NEGATIVE) 08/24/18 22:15 Urine Blood Negative (NEGATIVE) 08/24/18 22:15 Urine Nitrate Negative (NEGATIVE) 08/24/18 22:15 Urine Bilirubin Negative (NEGATIVE) 08/24/18 22:15 Urine Urobilinogen 0.2-1.0 mg/dL (0.2-1.0) 08/24/18 22:15 Ur Leukocyte Esterase Neg Max/uL (Negative) 08/24/18 22:15 Urine RBC (Auto) < 1 /hpf (0-3) 08/24/18 22:15 Urine Microscopic WBC < 1 /hpf (0-5) 08/24/18 22:15 Stool Occult Blood Negative (NEGATIVE) 08/24/18 18:55 Blood Type B POSITIVE 08/24/18 19:00 Antibody Screen Negative 08/24/18 19:00 Crossmatch See Detail 08/24/18 19:00 BBK History Checked Patient has bt 08/24/18 19:00 - Hospital Course Hospital Course: 48-year-old male with PMH of seizure disorder, meningitis and gastric bypass surgery was admitted for abdominal pain and rectal bleeding. Initial Hg/Hct: 10.3/30.1, dropped to 7.8/22.5 after many episodes of bloody bowel movements. Transferred to ICU for monitoring of hemodynamic stability. He was transfused 3 PRBCs through admission and final Hg/Hct was 8.5/24.4. GI consulted, Dr Blackburn preformed endoscopy and colonoscopy; revealed blood in intestine and clean based duodenal ulcer 10 mm in diameter. Patient remained stable with no further bleeding. Renal mass incidentally found on CT, nephrology (Dr. Masters) recommended patient be refered to a Robotic Urologist for partial nephrectomy. Follow-up MRI could not be done in house due to incompatible spinal implant. Patient hemodynamically stable and medically cleared for discharge to home. Discharged on home medications and Protonix 40mg BID with recommendations to follow up with Dr Blackburn (GI), PMD (Dr Layne) and a robotic nephologist to evaluate renal mass further. Discharge Exam - Head Exam Head Exam: ATRAUMATIC, NORMAL INSPECTION - Eye Exam Eye Exam: Normal appearance - ENT Exam ENT Exam: Mucous Membranes Moist - Neck Exam Neck exam: Full Rom - Respiratory Exam Respiratory Exam: Clear to PA & Lateral, NORMAL BREATHING PATTERN, UNREMARKABLE. absent: Respiratory Distress - Cardiovascular Exam Cardiovascular Exam: REGULAR RHYTHM, +S1, +S2 - GI/Abdominal Exam GI & Abdominal Exam: Soft, Unremarkable. absent: Distended, Tenderness - Extremities Exam Extremities exam: normal inspection - Neurological Exam Neurological exam: Alert, Normal Gait, Oriented x3 - Psychiatric Exam Psychiatric exam: Normal Affect, Normal Mood - Skin Skin Exam: Dry, Intact, Normal Color, Warm Additional comments: Pallor resolved Discharge Plan - Discharge Medications Prescriptions: Cyanocobalamin [Vitamin B12 1000 mcg Tab] 2,000 mcg PO DAILY #30 tab lamoTRIgine [Lamictal] 100 mg PO Q12 #60 tab Pantoprazole Sodium [Protonix] 40 mg PO BID 30 Days #60 ect - Follow Up Plan Condition: FAIR Disposition: HOME/ ROUTINE Referrals: Jones Blackburn MD [Staff Provider] -
--- NOTE | 2018-08-27 15:56 | MRI ---
Date of service: 08/27/2018 PROCEDURE: MRI Abdomen with and without contrast HISTORY: COMPARISON: None available. TECHNIQUE: Multisequence, multiplanar MR images of the abdomen with and without gadolinium contrast enhancement. FINDINGS: LIVER: Unremarkable. GALLBLADDER: Unremarkable. SPLEEN: Unremarkable. PANCREAS: Unremarkable. ADRENALS: Unremarkable. KIDNEYS: 2.5 centimeter hyperintense T2 cystic mass in the lateral aspect of the left kidney which appears to display areas of patchy enhancement on post contrast imaging; this should be considered renal cell carcinoma until proven otherwise. AORTA: No aneurysm. ASCITES: None. PERITONEUM: Unremarkable. LYMPH NODES: Unremarkable. OTHER FINDINGS: None. IMPRESSION: 2.5 centimeter hyperintense T2 cystic mass in the lateral aspect of the left kidney which appears to display areas of patchy enhancement on post contrast imaging; this should be considered renal cell carcinoma until proven otherwise.
== END 2018-08-27 14:56 | disposition home or self-care (01) | DRG 378 ==
LOC: H.ER 17:40 → H.ERHOLD 22:50 → H.MEDSURG1 08-25 03:10 → H.ICU/CCU 08-25 10:21 → OBSVTOIN 08-25 19:27
PROVIDERS: ADMIT Internal Medicine; ATTEND Internal Medicine
PROC: 30233N1 Transfusion of Nonautologous Red Blood Cells into Peripheral Vein, Percutaneous Approach (ICD-10-PCS; 2018-08-25)
PROC: 0DB98ZX Excision of Duodenum, Via Natural or Artificial Opening Endoscopic, Diagnostic (ICD-10-PCS; principal; 2018-08-26 10:30)
PROC: 0DJD8ZZ Inspection of Lower Intestinal Tract, Via Natural or Artificial Opening Endoscopic (ICD-10-PCS; 2018-08-26 10:30)
DX: K92.1 Melena (principal); K56.600 Partial intestinal obstruction, unspecified as to cause; D62 Acute posthemorrhagic anemia; K26.4 Chronic or unspecified duodenal ulcer with hemorrhage; K64.8 Other hemorrhoids; N28.89 Other specified disorders of kidney and ureter; G40.909 Epilepsy, unspecified, not intractable, without status epilepticus; K57.30 Diverticulosis of large intestine without perforation or abscess without bleeding; K29.50 Unspecified chronic gastritis without bleeding; F41.9 Anxiety disorder, unspecified; Z98.84 Bariatric surgery status; Z90.49 Acquired absence of other specified parts of digestive tract; Z86.61 Personal history of infections of the central nervous system; Z87.891 Personal history of nicotine dependence